=== PATIENT | male | born 1945 | race Caucasian/White ===

== ENCOUNTER 2022-11-01 10:42 | Inpatient (IN) ==
--- NOTE | 2022-11-01 11:13 | Emergency Department Note ---
HPI General Chief complaint: Shortness of Breath/Dyspnea Stated complaint: Sob/swelling of legs Time Seen by Provider: 11/01/22 11:12 Source: patient Mode of arrival: ambulatory Limitations: no limitations History of Present Illness HPI Narrative: Narrative: Patient is a 77-year-old male with a complex past medical history who presents to the emergency department due to shortness of breath. Patient states that he has seen many emergency department physicians and specialists. None of them have been able to take care of his problem. He states that he does not want to leave today without finding a solution. He endorses shortness of breath for months, and states that he thinks it is because of his abdomen. He states that he has swelling of his abdomen that is pressing on his chest and making it difficult to breathe. He states that he has pressure in his abdomen, and that he thinks that this is because of constipation. He is taking opioids and has not had regular bowel movements. He states that it has been a couple of days since his last bowel movement at this time. He endorses productive cough, intermittent nausea, abdominal pressure, changes in frequency of urination, although he states that sometimes frequent and other times he does not, and that he has not had frequent urination recently. He endorses swelling in bilateral lower extremities, and states that he has been diagnosed with heart failure, but that he does not take any furosemide or other diuretics. Related Data Home Medications Medication Instructions Recorded Confirmed vitamin E mixed 400 unit tablet 400 unit PO QDAY 01/06/21 11/02/22 ferrous sulfate, dried 160 mg (50 160 mg PO QDAY 05/23/22 11/02/22 mg iron) tablet,extended release (Slow Release Iron) ginseng 500 mg capsule 500 mg PO QDAY 05/23/22 11/02/22 methocarbamol 500 mg tablet 500 mg PO BID 05/23/22 11/01/22 oxycodone-acetaminophen 7.5 mg-325 1 tab PO 5XD PRN Pain 05/23/22 11/01/22 mg tablet quinine-vitamin E capsule 1 cap PO QDAY 05/23/22 11/02/22 Previous Rx's Medication Instructions Recorded compression socks, medium (Futuro #2 ea 05/09/22 Restoring Medium) esomeprazole magnesium 40 mg 40 mg PO QDAY #90 caps 08/31/22 capsule,delayed release (Nexium) escitalopram oxalate 10 mg tablet 10 mg PO QDAY anxiety and 09/29/22 depression #90 tabs amlodipine 5 mg tablet 5 mg PO QDAY #90 tabs 10/03/22 doxycycline hyclate 100 mg tablet 100 mg PO BID #20 tabs 10/11/22 nortriptyline 10 mg capsule 10 mg PO QHS #90 caps 10/11/22 prednisone 20 mg tablet 40 mg PO QDAY #10 tabs 10/11/22 albuterol sulfate 90 mcg/actuation 2 puff inhalation Q6H PRN 10/31/22 aerosol inhaler shortness of breath or wheezing #8.5 grams amoxicillin 500 mg capsule 500 mg PO Q12H #20 caps 10/31/22 azithromycin 250 mg tablet See Rx Instructions PO .COMPLEX #6 10/31/22 tabs Allergies Allergy/AdvReac Type Severity Reaction Status Date / Time hydrochlorothiazide Allergy Severe Difficulty Verified 11/01/22 18:08 Breathing lisinopril [LISINOPRIL] Allergy Severe Difficulty Verified 11/01/22 18:08 Breathing pravastatin Allergy Severe Difficulty Verified 11/01/22 18:08 Breathing aspirin [From Aggrenox] Allergy Unknown Unknown Verified 11/01/22 18:08 dipyridamole [From Aggrenox] AdvReac Mild Confusion Verified 11/03/22 10:46 Review of Systems ROS ROS Narrative: Narrative: Constitutional: Denies fever or weakness Eyes: Denies eye pain or vision change ENT ED: Denies throat pain, hearing loss or rhinorrhea Cardiovascular: Reports edema; Denies chest pain, dyspnea on exertion or orthopnea Respiratory: Reports shortness of breath and cough Gastrointestinal: Reports abdominal pain, nausea and constipation; Denies vomiting, diarrhea, hematochezia or melena Genitourinary: Reports frequency; Denies dysuria Musculoskeletal: Denies back pain or myalgia Integumentary: Denies rash or lesions Neurological: Denies headache, weakness, numbness, confusion, abnormal gait or dizziness PFSH Narrative Patient History Narrative: Narrative: Medical/Surgical/Family History All Active Problems (Updated 11/03/22 @ 22:31 by Musa Vaz MD) Pneumonia (Acute) CHF exacerbation (Acute) Cigarette smoker (Acute) Essential hypertension (Acute) Community acquired pneumonia (Acute) CHF exacerbation (Acute) 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) COPD with acute exacerbation (Acute) Pigmented skin lesion of suspected malignant nature (Acute) Multilevel degenerative disc disease (Chronic) Hiatal hernia (Chronic) 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) CAD (coronary artery disease) (Chronic) Atherosclerotic heart disease (Chronic) Abdominal pain (Chronic) Volume overload (Chronic) Hypoxia (Chronic) New onset of congestive heart failure (Chronic) History of carotid endarterectomy (Acute ~2014) Precancerous skin lesion (Chronic) Chronic sinusitis (Chronic) History of squamous cell carcinoma of skin (Chronic) Other specified dermatoses (Chronic) Onychomycosis (Chronic) Onycholysis (Chronic) Callus of foot (Chronic) Tobacco use (Chronic) Testicular hypofunction (Chronic) Slowing, urinary stream (Chronic) Rising PSA level (Chronic) Transient visual loss, left eye (Chronic) Partial retinal artery occlusion, left eye (Chronic) Vision disorder (Chronic) Idiopathic progressive neuropathy (Chronic) GERD (gastroesophageal reflux disease) (Chronic) Anxiety and depression (Chronic) Mixed hyperlipidemia (Chronic) Right arm cellulitis (Chronic) Notalgia paresthetica (Chronic) Other lesions of oral mucosa (Chronic) Benign tumor (Chronic) Effusion, right elbow (Chronic) Gout of right elbow (Chronic) Prurigo nodularis (Chronic) Thoracic back pain (Chronic) Lumbar back pain (Chronic) Right shoulder pain (Chronic) Pain in joint of left shoulder (Chronic) Dental caries (Chronic) Stage 3 chronic kidney disease (Chronic) Insulin resistance syndrome (Chronic) Type 2 diabetes mellitus with hyperglycemia (Chronic) Essential hypertension (Chronic) Venous insufficiency of left leg (Chronic) Peripheral vascular disease (Chronic) Bilateral carotid artery occlusion (Chronic) 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) TIA (transient ischemic attack) (Chronic) COPD (chronic obstructive pulmonary disease) (Chronic) BMI 40.0-44.9, adult (Chronic) Morbid obesity (Chronic) Bilateral leg cramps (Chronic) Bloating symptom (Chronic) Low hemoglobin (Chronic) Daytime somnolence (Chronic) Medical History Abdominal pain Aneurysm of infrarenal abdominal aorta Aneurysm of right common iliac artery Anxiety and depression Atherosclerotic heart disease Benign tumor Labial mucosa Bilateral carotid artery occlusion Bilateral leg cramps Bloating symptom BMI 40.0-44.9, adult CAD (coronary artery disease) Callus of foot Chronic sinusitis COPD (chronic obstructive pulmonary disease) Daytime somnolence Dental caries Effusion, right elbow Essential hypertension GERD (gastroesophageal reflux disease) Gout of right elbow Hiatal hernia History of squamous cell carcinoma of skin Hypoxia Idiopathic progressive neuropathy Insulin resistance syndrome Low hemoglobin Lumbar back pain Mixed hyperlipidemia Morbid obesity Multilevel degenerative disc disease New onset of congestive heart failure Notalgia paresthetica Occlusion of right femoropopliteal bypass graft Onycholysis Onychomycosis Other lesions of oral mucosa Other specified dermatoses Pain in joint of left shoulder Partial retinal artery occlusion, left eye Peripheral vascular disease Precancerous skin lesion Prurigo nodularis Right arm cellulitis Right shoulder pain Rising PSA level Slowing, urinary stream Stage 3 chronic kidney disease Testicular hypofunction Thoracic back pain TIA (transient ischemic attack) Tobacco use Transient visual loss, left eye Type 2 diabetes mellitus with hyperglycemia Unspecified cerebral artery occlusion with cerebral infarction Venous insufficiency of left leg Vision disorder Volume overload Surgical History History of carotid endarterectomy (~2013) History of surgery (~06/2017) RLE stents placed; Dr. Queen History of surgery Squamous cell carcinoma removal Family History Mother Cancer Uterine Father , age 70 Kidney disease Grandfather Lung cancer Paternal Daughter Diabetes Type 2 Other Hypertension Metastatic cancer Ovarian cancer Social History Smoking Status: Current every day smoker and Smokeless tobacco Alcohol Intake Frequency: does not drink Substance Use: does not use Exam Narrative Narrative: Narrative: General Limitations: no limitations General appearance: Present alert and in no apparent distress; Absent anxious, appears intoxicated or sleepy Head Head: Present atraumatic and normocephalic Eye Eye: Present EOMI; Absent scleral icterus or nystagmus ENT ENT: Present mucous membranes moist; Absent nasal congestion Neck Neck: Present full ROM and trachea midline Chest Chest: Present normal inspection and symmetric chest wall rise Respiratory Respiratory: Present normal lung sounds bilaterally and rales/crackles; Absent respiratory distress, wheezes, stridor or accessory muscle use Cardiovascular Cardiovascular: Present regular rate, normal rhythm and normal heart sounds Adbominal Abdominal: Present soft, distention and normal bowel sounds; Absent tenderness, guarding, rebound or rigidity Extremities Extremities: Present normal inspection, full ROM, pedal edema and pretibial edema Back Back: Present normal inspection and full ROM; Absent CVA tenderness (R) or CVA tenderness (L) Neurological Neurological: Present alert and oriented X3 Psychiatric Psychiatric: Present normal affect and normal mood Skin Skin: Present warm (WNL), dry and normal color Course Vital Signs Vital signs: Vital Signs Temperature 99.1 F H 11/01/22 10:42 Pulse Rate 105 H 11/01/22 10:42 Respiratory Rate 19 11/01/22 10:42 Blood Pressure 165/88 11/01/22 10:42 Pulse Oximetry (%) 82 L 11/01/22 10:42 Oxygen Delivery Method Room Air 11/01/22 10:42 Temperature 99.3 F H 11/03/22 20:00 Pulse Rate 89 11/03/22 20:00 Respiratory Rate 32 H 11/03/22 20:00 Blood Pressure 134/83 11/03/22 20:00 Pulse Oximetry (%) 98 11/03/22 20:00 Oxygen Delivery Method Oxymask 11/03/22 20:00 Oxygen Flow Rate (L/min) 4 11/03/22 20:00 [facility] MDM Narrative Medical decision making narrative: Narrative: Patient is a 77-year-old male with a complex past medical history who presents to the emergency department due to shortness of breath. Differential diagnoses include constipation and distention, bacterial pneumonia, COVID, influenza, other viral infection, ACS, and CHF exacerbation. Patient's chest x-ray does show a new infiltrate concerning for pneumonia, but also with signs concerning for CHF exacerbation. Patient's BNP is 7230. Patient has received a dose of ceftriaxone and a dose of azithromycin. I have also given him Lasix. I have spoken to Dr. Bruno who has agreed to see and evaluate patient for admission. Lab Data 11/01/22 12:45 Labs: Lab Results 11/01/22 11/01/22 11/01/22 Range/Units 12:15 12:25 12:26 WBC (4.5-11.0) K/mcL RBC (4.63-6.08) M/mcL Hgb (13.7-17.5) g/dL Hct (40.1-51.0) % POC Hct 46.0 (41-55) MCV (80.0-100.0) fL MCH (26.0-34.0) pg MCHC (31.0-36.0) g/dL RDW (11.5-14.5) % Plt Count (140-440) K/mcL MPV (8.8-12.5) fL Immature Gran % (Auto) (0.0-0.5) % Neut % (Auto) (38.0-78.0) % Lymph % (Auto) (15.5-49.0) % Price % (Auto) (1.0-12.0) % Eos % (Auto) (0.0-7.0) % Baso % (Auto) (0.0-2.0) % Lymph # (Auto) (1.50-4.80) K/mcL Price # (Auto) (0.10-0.90) K/mcL Eos # (Auto) (0.00-0.70) K/mcL Baso # (Auto) (0.00-0.30) K/mcL Immature Gran # (0.00-0.05) K/mcl Absolute Neutrophils (1.80-8.00) K/mcL POC Sodium 130 L (133-145) POC Potassium 4.9 (3.3-5.1) POC Chloride 89 L (96-108) POC Total CO2 34.0 H (22-30) POC BUN 16 (6-20) POC Creatinine 1.1 (0.6-1.2) POC Glucose 141 H (70-105) POC WB Ioniz Calcium 1.20 (1.16-1.32) Total Bilirubin (0.1-1.0) mg/dL Direct Bilirubin (0-0.3) mg/dL AST (<40) U/L ALT (<40) U/L Alkaline Phosphatase (39-117) U/L NT-Pro-B Natriuret Pep (<450.0) pg/mL Total Protein (5.9-8.4) gm/dL Albumin (3.2-5.2) gm/dL Globulin (2.2-3.7) gm/dL Lipase (7-60) U/L Urine Color Yellow Urine Appearance Clear (Clear) Urine pH 8.0 (5.0-9.0) Ur Specific [place] 1.012 (1.000-1.035) Urine Protein 100 A (Negative) mg/dL Urine Glucose (UA) Negative (Negative) mg/dL Urine Ketones Negative (Negative) mg/dL Urine Occult Blood Negative (Negative) mg/dL Urine Nitrate Negative (Negative) Urine Bilirubin Negative (Negative) mg/dL Urine Urobilinogen Negative mg/dL Ur Leukocyte Esterase Negative (Negative) /uL Urine RBC 0 (0-3) /hpf Urine WBC < 1 (0-4) /hpf Ur Squamous Epith Cells 0 (0-4) /hpf Urine Bacteria None (0) /hpf Ur Culture Indicated? No POC Troponin I 0.06 (0.00-0.08) 11/01/22 11/01/22 Range/Units 12:44 12:45 WBC 5.4 (4.5-11.0) K/mcL RBC 4.58 L (4.63-6.08) M/mcL Hgb 13.0 L (13.7-17.5) g/dL Hct 43.1 (40.1-51.0) % POC Hct (41-55) MCV 94.1 (80.0-100.0) fL MCH 28.4 (26.0-34.0) pg MCHC 30.2 L (31.0-36.0) g/dL RDW 14.8 H (11.5-14.5) % Plt Count 202 (140-440) K/mcL MPV 9.5 (8.8-12.5) fL Immature Gran % (Auto) 0.7 H (0.0-0.5) % Neut % (Auto) 78.1 H (38.0-78.0) % Lymph % (Auto) 10.5 L (15.5-49.0) % Price % (Auto) 10.5 (1.0-12.0) % Eos % (Auto) 0 (0.0-7.0) % Baso % (Auto) 0.2 (0.0-2.0) % Lymph # (Auto) 0.57 L (1.50-4.80) K/mcL Price # (Auto) 0.57 (0.10-0.90) K/mcL Eos # (Auto) 0 (0.00-0.70) K/mcL Baso # (Auto) 0.01 (0.00-0.30) K/mcL Immature Gran # 0.04 (0.00-0.05) K/mcl Absolute Neutrophils 4.25 (1.80-8.00) K/mcL POC Sodium (133-145) POC Potassium (3.3-5.1) POC Chloride (96-108) POC Total CO2 (22-30) POC BUN (6-20) POC Creatinine (0.6-1.2) POC Glucose (70-105) POC WB Ioniz Calcium (1.16-1.32) Total Bilirubin 0.4 (0.1-1.0) mg/dL Direct Bilirubin < 0.2 (0-0.3) mg/dL AST 28 (<40) U/L ALT 14 (<40) U/L Alkaline Phosphatase 81 (39-117) U/L NT-Pro-B Natriuret Pep 7230.0 H (<450.0) pg/mL Total Protein 7.2 (5.9-8.4) gm/dL Albumin 4.1 (3.2-5.2) gm/dL Globulin 3.1 (2.2-3.7) gm/dL Lipase 14 (7-60) U/L Urine Color Urine Appearance (Clear) Urine pH (5.0-9.0) Ur Specific [place] (1.000-1.035) Urine Protein (Negative) mg/dL Urine Glucose (UA) (Negative) mg/dL Urine Ketones (Negative) mg/dL Urine Occult Blood (Negative) mg/dL Urine Nitrate (Negative) Urine Bilirubin (Negative) mg/dL Urine Urobilinogen mg/dL Ur Leukocyte Esterase (Negative) /uL Urine RBC (0-3) /hpf Urine WBC (0-4) /hpf Ur Squamous Epith Cells (0-4) /hpf Urine Bacteria (0) /hpf Ur Culture Indicated? POC Troponin I (0.00-0.08) EKG Data EKG #1: EKG attestation: Yes I reviewed and interpreted this EKG. EKG results narrative: Sinus tachycardia with a rate of 103, normal axis, NH of 212, QRS of 112, QTc of 447, T wave flattening in leads II, III, and aVF, and absence of ST elevation or depression. Discharge Plan Patient/Caregiver Discharge Instructions Pt seen by REFR[employer]ERATION MECHANIC HELPER/PA only: No Clinical Impression: Pneumonia, CHF exacerbation Patient Disposition: Xfer As Inpt ([facility]) Discharge Date/Time: 11/01/22 17:08
[2022-11-01 12:40] LABS: POC Calcium, Ionized 1.2 (1.16-1.32); POC Creatinine 1.1 (0.6-1.2); POC Potassium 4.9 (3.3-5.1)
--- NOTE | 2022-11-01 12:47 | XRay Report ---
HISTORY: Short of breath, swollen legs FINDINGS: Heart is moderately enlarged but magnified by portable technique. The pulmonary vessels appear engorged. There is an infiltrate at the right lung base. There may be a small subpulmonic pleural effusion on the right. There has been little change from the prior x-ray done on 10/11/22. IMPRESSION: Mild congestive heart failure with possible superimposed pneumonia in the right lower lobe Interpreted and Authenticated by: Aly Patton 11/01/22
--- NOTE | 2022-11-01 12:54 | XRay Report ---
HISTORY: Constipation FINDINGS: The large and small intestine are normal in caliber, without evidence of fecal impaction or obstruction. Few small air-fluid levels are present which may be due to mild ileus. No free intra-abdominal air is present. Patient has mild aneurysmal dilatation of the distal abdominal aorta. This was seen on the prior CT done on 03/15/22 and has not grossly changed. There is a hiatus hernia with an air-fluid level. Degenerative disc disease and arthritis are present at multiple levels in the lumbar spine. There are streaky infiltrates in both lung bases, right greater than left. IMPRESSION: No evidence of fecal impaction or acute abnormality in the abdomen Interpreted and Authenticated by: Aly Patton 11/01/22
[2022-11-01 13:21] LABS: Basophils # (Auto) 0.01 K/mcL (0.00-0.30); Basophils % (Auto) 0.2 % (0.0-2.0); Eosinophils # (Auto) 0 K/mcL (0.00-0.70); Eosinophils % (Auto) 0 % (0.0-7.0); Hematocrit 43.1 % (40.1-51.0); Lymphocytes # (Auto) 0.57 K/mcL (1.50-4.80); Lymphocytes % (Auto) 10.5 % (15.5-49.0); Mean Cell Volume 94.1 fL (80.0-100.0); Mean Corpuscular HGB Conc 30.2 g/dL (31.0-36.0); Mean Platelet Volume 9.5 fL (8.8-12.5); Monocytes # (Auto) 0.57 K/mcL (0.10-0.90); Monocytes % (Auto) 10.5 % (1.0-12.0); Neutrophils % (Auto) 78.1 % (38.0-78.0); Platelet Count 202 K/mcL (140-440); RBC 4.58 M/mcL (4.63-6.08); Red Cell Distribution Width 14.8 % (11.5-14.5); WBC 5.4 K/mcL (4.5-11.0)
[2022-11-01] MEDS ORDERED: HYDROcodone/APAP 5/325MG TABLET PO ONE (13:39)
[2022-11-01 13:55] LABS: Appearance,Urine CLEAR (Clear); Bilirubin,Urine Negative (Negative); Color,Urine YELLOW; Culture Indicated,Urine No; Glucose,Urine (UA) Negative (Negative); Ketones,Urine Negative (Negative); Leukocyte Esterase,Urine Negative /uL (Negative); Nitrate,Urine Negative (Negative); Protein,Urine 100 mg/dL (Negative); Specific Gravity,Urine 1.012 (1.000-1.035); Urine Blood Negative (Negative); Urine RBC 0 /hpf (0-3); Urine Squamous Epithelial Cell 0 /hpf (0-4); Urine WBC < 1 /hpf (0-4); Urobilinogen,Urine Negative
[2022-11-01 13:58] LABS: ALT/SGPT 14 U/L (<40); AST/SGOT 28 U/L (<40); Albumin 4.1 gm/dL (3.2-5.2); Alkaline Phosphatase 81 U/L (39-117); Bilirubin,Direct < 0.2 mg/dL (0-0.3); Bilirubin,Total 0.4 mg/dL (0.1-1.0); Globulin 3.1 gm/dL (2.2-3.7)
[2022-11-01] MEDS ORDERED: NICOTINE 14 MG PATCH TOPICAL ONE (13:59)
[2022-11-01] MEDS ORDERED: FUROSEMIDE 100 MG/10 ML VIAL IV ONE (13:59)
[2022-11-01] MEDS ORDERED: cefTRIAXone 1 GM VIAL IV ONE (14:33)
[2022-11-01] MEDS ORDERED: AZITHROMYCIN 500 MG in DEXTROSE 5% IN WATER 250 ML IV ONE (14:33)
--- NOTE | 2022-11-01 15:06 | Internal Med History&Physical ---
HPI History of Present Illness Patient information: Note initiated : 11/01/22 at 3:00 pm Service Date, if different from initiated Date: [] Patient: Chet Silver 77 y/o M admitted on for Sob/swelling of legs. Chief Complaint: [abdominal pain and distension, shortness of breath] Chief complaint: abdominal pain and distension, shortness of breath History of present illness: Mr. Silver is a 77 year old M history of COPD, CHF, essential hypertensions, anxiety/depressions, CAD, PAD, GERD, smoker, presenting with 9-month history of progressively worsening abdominal pain and distention's. He is complaining of abdominal pain and distention and associated shortness of breath. He is committing of the pill exertion with 50 feet's. He is complaining of unintentional weight gain but he cannot quantify it. He is complain of bilateral leg swellings. He sleeps in a recliner. He does not use oxygen at home. He is coming of cough with brown sputum. He is coming of respiratory symptoms. He denies any fever, chills, or diaphoresis. He denies any chest pain or palpitations. Vital signs at ED presentation significant for oxygen desaturating to 88 on room air as well as tachycardia with heart rate up to the low 100s. Labs significant for lack of leukocytosis with WBC 5.4. BNP 7230. COVID influenza and RSV screening pending. Abdominal x-ray showing no evidence of fecal impaction or acute abnormalities in the abdomen. Chest x-ray showing mild congestive heart failure with possible superimposed pneumonia in the right lower lobe. Admission request is called for CHF exacerbation as well as community-acquired pneumonia. Constitutional Constitutional: Present weight gain; Absent chills, excessive sweating, fatigue or fever(s) EENT Eyes: Absent blurry vision, change in vision, loss of vision or other visual disturbances Ears: Absent decreased hearing or tinnitus Nose, mouth and throat: Absent abnormal hearing, dry mouth, headache(s), nasal congestion or sore throat Cardiovascular Cardiovascular: Present dyspnea on exertion, edema and pedal edema; Absent chest pain, chest pain at rest, irregular heart rhythm or palpatations Respiratory Respiratory: Present cough, dyspnea, dyspnea on exertion, wheezing and excessive phlegm production Gastrointestinal Gastrointestinal: Absent abdominal pain, constipation, diarrhea, nausea or vomiting Musculoskeletal Musculoskeletal: Absent back pain, deformity, limited range of motion, muscle cramps, muscle weakness or numbness Integumentary Integumentary: Absent lesions, rash or wounds Neurological Neurological: Absent focal weakness, headache(s) or numbness Psychiatric Psychiatric: Absent anxiety, depression or hallucinations PFSH PFSH All Active Problems (Updated 11/01/22 @ 15:08 by Vinny Bruno MD) Cigarette smoker (Acute) Essential hypertension (Acute) Community acquired pneumonia (Acute) CHF exacerbation (Acute) 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) COPD with acute exacerbation (Acute) Pigmented skin lesion of suspected malignant nature (Acute) Multilevel degenerative disc disease (Chronic) Hiatal hernia (Chronic) 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) CAD (coronary artery disease) (Chronic) Atherosclerotic heart disease (Chronic) Abdominal pain (Chronic) Volume overload (Chronic) Hypoxia (Chronic) New onset of congestive heart failure (Chronic) History of carotid endarterectomy (Acute ~2014) Precancerous skin lesion (Chronic) Chronic sinusitis (Chronic) History of squamous cell carcinoma of skin (Chronic) Other specified dermatoses (Chronic) Onychomycosis (Chronic) Onycholysis (Chronic) Callus of foot (Chronic) Tobacco use (Chronic) Testicular hypofunction (Chronic) Slowing, urinary stream (Chronic) Rising PSA level (Chronic) Transient visual loss, left eye (Chronic) Partial retinal artery occlusion, left eye (Chronic) Vision disorder (Chronic) Idiopathic progressive neuropathy (Chronic) GERD (gastroesophageal reflux disease) (Chronic) Anxiety and depression (Chronic) Mixed hyperlipidemia (Chronic) Right arm cellulitis (Chronic) Notalgia paresthetica (Chronic) Other lesions of oral mucosa (Chronic) Benign tumor (Chronic) Effusion, right elbow (Chronic) Gout of right elbow (Chronic) Prurigo nodularis (Chronic) Thoracic back pain (Chronic) Lumbar back pain (Chronic) Right shoulder pain (Chronic) Pain in joint of left shoulder (Chronic) Dental caries (Chronic) Stage 3 chronic kidney disease (Chronic) Insulin resistance syndrome (Chronic) Type 2 diabetes mellitus with hyperglycemia (Chronic) Essential hypertension (Chronic) Venous insufficiency of left leg (Chronic) Peripheral vascular disease (Chronic) Bilateral carotid artery occlusion (Chronic) 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) TIA (transient ischemic attack) (Chronic) COPD (chronic obstructive pulmonary disease) (Chronic) BMI 40.0-44.9, adult (Chronic) Morbid obesity (Chronic) Bilateral leg cramps (Chronic) Bloating symptom (Chronic) Low hemoglobin (Chronic) Daytime somnolence (Chronic) Medical History Abdominal pain Aneurysm of infrarenal abdominal aorta Aneurysm of right common iliac artery Anxiety and depression Atherosclerotic heart disease Benign tumor Labial mucosa Bilateral carotid artery occlusion Bilateral leg cramps Bloating symptom BMI 40.0-44.9, adult CAD (coronary artery disease) Callus of foot Chronic sinusitis COPD (chronic obstructive pulmonary disease) Daytime somnolence Dental caries Effusion, right elbow Essential hypertension GERD (gastroesophageal reflux disease) Gout of right elbow Hiatal hernia History of squamous cell carcinoma of skin Hypoxia Idiopathic progressive neuropathy Insulin resistance syndrome Low hemoglobin Lumbar back pain Mixed hyperlipidemia Morbid obesity Multilevel degenerative disc disease New onset of congestive heart failure Notalgia paresthetica Occlusion of right femoropopliteal bypass graft Onycholysis Onychomycosis Other lesions of oral mucosa Other specified dermatoses Pain in joint of left shoulder Partial retinal artery occlusion, left eye Peripheral vascular disease Precancerous skin lesion Prurigo nodularis Right arm cellulitis Right shoulder pain Rising PSA level Slowing, urinary stream Stage 3 chronic kidney disease Testicular hypofunction Thoracic back pain TIA (transient ischemic attack) Tobacco use Transient visual loss, left eye Type 2 diabetes mellitus with hyperglycemia Unspecified cerebral artery occlusion with cerebral infarction Venous insufficiency of left leg Vision disorder Volume overload Surgical History History of carotid endarterectomy (~2013) History of surgery (~06/2017) RLE stents placed; Dr. Queen History of surgery Squamous cell carcinoma removal Family History Mother Cancer Uterine Father , age 70 Kidney disease Grandfather Lung cancer Paternal Daughter Diabetes Type 2 Other Hypertension Metastatic cancer Ovarian cancer Social History marital status: occupational status: retired physical activity: none smoking status: Current every day smoker and Smokeless tobacco alcohol intake frequency: does not drink substance use type: does not use MEDS/ALLERGIES Home Medications and Allergies Home Medications Medication Instructions Recorded Confirmed Type vitamin E mixed 400 unit tablet unit PO QDAY 01/06/21 10/31/22 History compression socks, medium (Futuro #2 ea 05/09/22 10/31/22 Rx Restoring Medium) ferrous sulfate, dried 160 mg (50 160 mg PO QDAY 05/23/22 10/31/22 History mg iron) tablet,extended release (Slow Release Iron) ginseng 500 mg capsule 500 mg PO QDAY 05/23/22 10/31/22 History methocarbamol 500 mg tablet 500 mg PO BID 05/23/22 10/31/22 History oxycodone-acetaminophen 7.5 mg-325 1 tab PO 5XD PRN 05/23/22 10/31/22 History mg tablet quinine-vitamin E capsule 1 cap PO QDAY 05/23/22 10/31/22 History esomeprazole magnesium 40 mg 40 mg PO QDAY #90 caps 08/31/22 10/31/22 Rx capsule,delayed release (Nexium) escitalopram oxalate 10 mg tablet 10 mg PO QDAY anxiety and 09/29/22 10/31/22 Rx depression #90 tabs amlodipine 5 mg tablet 5 mg PO QDAY #90 tabs 10/03/22 10/31/22 Rx doxycycline hyclate 100 mg tablet 100 mg PO BID #20 tabs 10/11/22 10/31/22 Rx nortriptyline 10 mg capsule 10 mg PO QHS #90 caps 10/11/22 10/31/22 Rx prednisone 20 mg tablet 40 mg PO QDAY #10 tabs 10/11/22 10/31/22 Rx albuterol sulfate 90 mcg/actuation 2 puff inhalation Q6H PRN 10/31/22 Rx aerosol inhaler shortness of breath or wheezing #8.5 grams amoxicillin 500 mg capsule 500 mg PO Q12H #20 caps 10/31/22 10/31/22 Rx azithromycin 250 mg tablet See Rx Instructions PO .COMPLEX #6 10/31/22 10/31/22 Rx tabs prednisone 20 mg tablet 40 mg PO QDAY #10 tabs 10/31/22 10/31/22 Rx Allergies Allergy/AdvReac Type Severity Reaction Status Date / Time aspirin [From Aggrenox] Allergy Severe Unknown Verified 10/31/22 11:31 dipyridamole [From Aggrenox] Allergy Severe Unknown Verified 10/31/22 11:31 pravastatin Allergy Severe Unknown Verified 10/31/22 11:31 hydrochlorothiazide Allergy Mild Unknown Verified 10/31/22 11:31 lisinopril [LISINOPRIL] Allergy Unknown RECTAL Verified 10/31/22 11:31 BLEEDING EXAM Constitutional Vitals: Temp Pulse Resp BP Pulse Ox O2 Del Method O2 Flow Rate 37.3 C H 95 H 19 161/80 91 Nasal Cannula 3 11/01/22 10:42 11/01/22 14:22 11/01/22 10:42 11/01/22 13:31 11/01/22 14:22 11/01/22 13:31 11/01/22 13:31 General appearance: cooperative and no acute distress Head Head exam: Present atraumatic and normocephalic Eye Eye exam: Present EOMI and PERRL ENT ENT exam: Present mucous membranes moist, normal exam and normal external ear exam Additional comments: Nasal cannula in place Neck Neck exam: Present normal inspection; Absent lymphadenopathy, tenderness or thyromegaly Respiratory Respiratory exam: Present decreased breath sounds; Absent accessory muscle use, respiratory distress or wheezes Cardiovascular Cardiovascular exam: Present normal rate and rhythm; Absent JVD GI/Abdominal GI/Abdominal exam: Present normal bowel sounds and soft; Absent organomegaly or tenderness Rectal Rectal exam: Present deferred Extremities Exam Extremities exam: Present full ROM, normal capillary refill, normal inspection and pedal edema; Absent tenderness Neurological Exam Neurological exam: Present alert, CN II-XII intact and oriented X3; Absent motor sensory deficit Psychiatric Psychiatric exam: Present normal affect and normal mood; Absent anxious or depressed Skin Skin exam: Present dry and intact DATA Data Completed and Pending Labs: Labs from last 24 hours 11/01/22 11/01/22 11/01/22 12:45 12:44 12:26 WBC 5.4 RBC 4.58 L Hgb 13.0 L Hct 43.1 POC Hct MCV 94.1 MCH 28.4 MCHC 30.2 L RDW 14.8 H Plt Count 202 MPV 9.5 Immature Gran % (Auto) 0.7 H Neut % (Auto) 78.1 H Lymph % (Auto) 10.5 L [place] % (Auto) 10.5 Eos % (Auto) 0 Baso % (Auto) 0.2 Lymph # (Auto) 0.57 L [place] # (Auto) 0.57 Eos # (Auto) 0 Baso # (Auto) 0.01 Immature Gran # 0.04 Absolute Neutrophils 4.25 POC Sodium POC Potassium POC Chloride POC Total CO2 POC BUN POC Creatinine POC Glucose POC WB Ioniz Calcium Total Bilirubin 0.4 Direct Bilirubin < 0.2 AST 28 ALT 14 Alkaline Phosphatase 81 NT-Pro-B Natriuret Pep 7230.0 H Total Protein 7.2 Albumin 4.1 Globulin 3.1 Lipase 14 Urine Color Urine Appearance Urine pH Ur Specific [place] Urine Protein Urine Glucose (UA) Urine Ketones Urine Occult Blood Urine Nitrate Urine Bilirubin Urine Urobilinogen Ur Leukocyte Esterase Urine RBC Urine WBC Ur Squamous Epith Cells Urine Bacteria Ur Culture Indicated? POC Troponin I 0.06 11/01/22 11/01/22 12:25 12:15 WBC RBC Hgb Hct POC Hct 46.0 MCV MCH MCHC RDW Plt Count MPV Immature Gran % (Auto) Neut % (Auto) Lymph % (Auto) [place] % (Auto) Eos % (Auto) Baso % (Auto) Lymph # (Auto) [place] # (Auto) Eos # (Auto) Baso # (Auto) Immature Gran # Absolute Neutrophils POC Sodium 130 L POC Potassium 4.9 POC Chloride 89 L POC Total CO2 34.0 H POC BUN 16 POC Creatinine 1.1 POC Glucose 141 H POC WB Ioniz Calcium 1.20 Total Bilirubin Direct Bilirubin AST ALT Alkaline Phosphatase NT-Pro-B Natriuret Pep Total Protein Albumin Globulin Lipase Urine Color Yellow Urine Appearance Clear Urine pH 8.0 Ur Specific [place] 1.012 Urine Protein 100 A Urine Glucose (UA) Negative Urine Ketones Negative Urine Occult Blood Negative Urine Nitrate Negative Urine Bilirubin Negative Urine Urobilinogen Negative Ur Leukocyte Esterase Negative Urine RBC 0 Urine WBC < 1 Ur Squamous Epith Cells 0 Urine Bacteria None Ur Culture Indicated? No POC Troponin I A/P Assessment and plan (1) CAD (coronary artery disease): Status: Chronic (2) CHF exacerbation: Status: Acute (3) Community acquired pneumonia: Status: Acute (4) GERD (gastroesophageal reflux disease): Status: Chronic (5) Anxiety and depression: Status: Chronic (6) COPD (chronic obstructive pulmonary disease): Status: Chronic (7) Morbid obesity: Status: Chronic (8) Essential hypertension: Status: Acute (9) Cigarette smoker: Status: Acute Narrative A/P Narrative: Assessment and Plans: 1. CHF exacerbation: Inpatient med surg telemetry Supplemental oxygen therapy titrate to achieve spo2>=88-92% Strict intake and output measurement Daily weigh 2000cc/day fluid restriction Lasix 40mg IV BID No beta thu at time of exacerbation Losartan Physical therapy evaluation and treatment 2. Community acquired pneumonia: Serial lactic acid Procalcitonin level Blood culture cbc w/ auto diff in the morning to trend WBC Rocephin Zithromax Supplemental oxygen therapy titrate to achieve spo2>=88-92% 3. h/o COPD, stable: Continue bronchodilators Supplemental oxygen therapy titrate to achieve spo2>=88-92% 4. Essential hypertension: Amlodipine Losartan Lasix 40mg IV BID 5. Anxiety/depression: Escitalopram Nortriptyline 6. h/o CAD: Continue to monitor 7. h/o PAD: Continue to monitor 8. GERD: PPI 9. Cigarette smoker: Nicotine replacement therapy 10. 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
[2022-11-01] MEDS ORDERED: traZODone HCL 50 MG TABLET PO PRN (17:40)
[2022-11-01] MEDS ORDERED: ONDANSETRON 4 MG/2 ML VIAL IV PRN (17:40)
[2022-11-01] MEDS ORDERED: oxyCODONE HCL 5 MG TABLET PO PRN (17:40)
[2022-11-01] MEDS ORDERED: ACETAMINOPHEN 325 MG TABLET PO PRN (17:40)
[2022-11-01] MEDS ORDERED: guaiFENesin/DEXTROMETHORPHAN 5ML UD CUP PO PRN (17:40)
[2022-11-01] MEDS ORDERED: cefTRIAXone 1 GM in DEXTROSE 5% IN WATER 50 ML IV SCH (17:40)
[2022-11-01] MEDS ORDERED: NON FORMULARY MEDICATION 1 DOSE MISCELL (Oxycodone-Acetaminophen 7.5-325 mg tablet) PO PRN (17:56)
[2022-11-01] MEDS ORDERED: ALBUTEROL SULFATE 60 PUFF INHALER INH PRN (17:56)
[2022-11-01] MEDS: IPRATROPIUM/ALBUTEROL 3 ML AMPUL.NEB NEB PRN (18:33)
[2022-11-01] MEDS: NICOTINE 21 MG PATCH TOPICAL SCH (19:00)
[2022-11-01] MEDS: NICOTINE 14 MG PATCH TOPICAL SCH (19:00)
[2022-11-01] MEDS: FUROSEMIDE 40 MG/4 ML VIAL IV SCH (19:04)
[2022-11-01] MEDS: SENNOSIDES 1 TABLET PO SCH (20:32)
[2022-11-01] MEDS: NORTRIPTYLINE 10 MG CAPSULE PO SCH (20:33)
[2022-11-01] MEDS: METHOCARBAMOL 500 MG TABLET PO SCH (20:33)
[2022-11-01] MEDS: DOCUSATE SODIUM 100 MG CAPSULE PO SCH (20:33)
[2022-11-01] MEDS: ZOLPIDEM 5 MG TABLET PO PRN (20:44)
[2022-11-01] MEDS: 0.9 % SODIUM CHLORIDE 10 ML SYRINGE IV SCH (20:48)
[2022-11-01] MEDS: oxyCODONE/APAP 5/325MG TABLET PO PRN (22:50)
[2022-11-02] MEDS: 0.9 % SODIUM CHLORIDE 10 ML SYRINGE IV SCH ×3 (05:26→20:54)
[2022-11-02 07:32] LABS: Estimated Average Glucose(eAG) 134 mg/dL; Hemoglobin A1C 6.3 % Hgb (4.0-6.0)
[2022-11-02 07:38] LABS: ALT/SGPT 6 U/L (<40); AST/SGOT 21 U/L (<40); Albumin/Globulin Ratio 1.5 (1.0-2.3); Alkaline Phosphatase 70 U/L (39-117); Basophils # (Auto) 0.03 K/mcL (0.00-0.30); Basophils % (Auto) 0.6 % (0.0-2.0); Bilirubin,Total 0.3 mg/dL (0.1-1.0); Blood Urea Nitrogen 12 mg/dL (8-23); Calcium 9.8 mg/dL (8.6-10.4); Carbon Dioxide 36 mmol/L (22-30); Chloride 92 mmol/L (96-108); Eosinophils # (Auto) 0.06 K/mcL (0.00-0.70); Eosinophils % (Auto) 1.1 % (0.0-7.0); Globulin 2.6 gm/dL (2.2-3.7); Glomerular Filtration Rate 65; Glucose 99 mg/dL (70-105); Hematocrit 40.4 % (40.1-51.0); Lymphocytes # (Auto) 0.76 K/mcL (1.50-4.80); Lymphocytes % (Auto) 14.4 % (15.5-49.0); Mean Cell Volume 95.1 fL (80.0-100.0); Mean Corpuscular HGB Conc 29.7 g/dL (31.0-36.0); Mean Platelet Volume 9.3 fL (8.8-12.5); Monocytes # (Auto) 0.68 K/mcL (0.10-0.90); Monocytes % (Auto) 12.9 % (1.0-12.0); Neutrophils % (Auto) 70.6 % (38.0-78.0); Platelet Count 182 K/mcL (140-440); RBC 4.25 M/mcL (4.63-6.08); WBC 5.3 K/mcL (4.5-11.0)
[2022-11-02] MEDS: cefTRIAXone 1 GM VIAL IV SCH (08:11)
[2022-11-02] MEDS: PANTOPRAZOLE 40 MG TABLET PO SCH (08:11)
[2022-11-02] MEDS: ESCITALOPRAM 10 MG TABLET PO SCH (08:11)
[2022-11-02] MEDS: DOCUSATE SODIUM 100 MG CAPSULE PO SCH ×2 (08:11→20:53)
[2022-11-02] MEDS: FUROSEMIDE 40 MG/4 ML VIAL IV SCH ×2 (08:11→15:24)
[2022-11-02] MEDS: LOSARTAN 25 MG TABLET PO SCH (08:11)
[2022-11-02] MEDS: ENOXAPARIN 40 MG/0.4 ML SYRINGE SQ SCH (08:11)
[2022-11-02] MEDS: METHOCARBAMOL 500 MG TABLET PO SCH ×2 (08:11→20:53)
[2022-11-02] MEDS: amLODIPine 5 MG TABLET PO SCH (08:12)
[2022-11-02] MEDS: oxyCODONE/APAP 5/325MG TABLET PO PRN ×3 (08:20→23:10)
[2022-11-02] MEDS ORDERED: predniSONE 20 MG TABLET PO SCH (09:00)
[2022-11-02] MEDS: NICOTINE 21 MG PATCH TOPICAL SCH (09:58)
[2022-11-02] MEDS: NICOTINE 14 MG PATCH TOPICAL SCH (09:58)
[2022-11-02] MEDS: AZITHROMYCIN 500 MG in DEXTROSE 5% IN WATER 250 ML IV SCH (09:58)
--- NOTE | 2022-11-02 12:40 | Internal Med Progress Note ---
SUBJECTIVE Subjective Patient information: Note initiated : 11/02/22 at 12:35 pm Service Date, if different from initiated Date: [] Patient: Chet Silver 77 y/o M admitted on 11/01/22 for Sob/swelling of legs; CHF. Chief Complaint: [] Interval history: Mr. Silver is a 77 year old M history of COPD, CHF, essential hypertensions, anxiety/depressions, CAD, PAD, GERD, smoker, presenting with 9-month history of progressively worsening abdominal pain and distention's. He is complaining of abdominal pain and distention and associated shortness of breath. He is committing of the pill exertion with 50 feet's. He is complaining of unintentional weight gain but he cannot quantify it. He is complain of bilateral leg swellings. He sleeps in a recliner. He does not use oxygen at home. He is coming of cough with brown sputum. He is coming of respiratory symptoms. He denies any fever, chills, or diaphoresis. He denies any chest pain or palpitations. Vital signs at ED presentation significant for oxygen desaturating to 88 on room air as well as tachycardia with heart rate up to the low 100s. Labs significant for lack of leukocytosis with WBC 5.4. BNP 7230. COVID influenza and RSV screening pending. Abdominal x-ray showing no evidence of fecal impaction or acute abnormalities in the abdomen. Chest x-ray showing mild congestive heart failure with possible superimposed pneumonia in the right lower lobe. Admission request is called for CHF exacerbation as well as community-acquired pneumonia. 11/02: Patient is currently on 5 L/min OxyMask. Afebrile overnight. WBC 5.3 this morning. Cultures no growth today. Echocardiogram performed and reports pending. Patient is still coming of the same degree of shortness of breath and chest pressure. He is coming of cough with brown sputum productions as well as respiratory wheezings. He denies fever chills or diaphoresis. Continue supplemental oxygen therapy and will wean down/off as tolerated by the patient's. Continue IV Lasix and ARB while waiting for echocardiogram report to make final medications adjustment. Continue Rocephin and azithromycin for pneumonia. Continue physical therapy evaluation and treatment for placement planning. Constitutional Vitals: Vital Signs Temp Pulse Resp BP Pulse Ox O2 Del Method O2 Flow Rate 36.6 C 98 H 24 H 149/94 97 Nasal Cannula 4.5 11/02/22 12:00 11/02/22 12:00 11/02/22 12:00 11/02/22 07:52 11/02/22 12:00 11/02/22 12:00 11/02/22 12:00 Period Temp Pulse Resp BP Sys/Duncan Pulse Ox O2 Del Method O2 Flow Rate Last 24 Hr 36.4 C-36.8 C 16-102 16-24 119-181/64-116 90-97 Nasal Cannula- Oxymask 2.5-6 Intake and Output 11/02/22 11/02/22 11/02/22 03:59 11:59 19:59 Intake Total 300 480 Output Total 300 225 500 Balance 0 -225 -20 Intake & Output: Intake & Output 11/02/22 11/02/22 11/02/22 03:59 11:59 19:59 Intake Total 300 480 Output Total 300 225 500 Balance 0 -225 -20 Intake: Oral 300 480 Output: Void Amount 300 225 500 Other: Meal Breakfast Percent of Meal Consumed 100% Urine Appearance Clear Clear Urine Color Yellow Pale Urine Odor Normal # Voids 3 General appearance: cooperative, morbidly obese and no acute distress Head Head exam: Present atraumatic and normal inspection Eye Eye exam: Present normal appearance ENT ENT exam: Present mucous membranes moist, normal exam and normal external ear exam Additional comments: OxyMask in place Neck Neck exam: Present normal inspection Respiratory Respiratory exam: Present rhonchi and wheezes Cardiovascular Cardiovascular exam: Present normal rate and rhythm GI/Abdominal GI/Abdominal exam: Present normal bowel sounds Extremities Exam Extremities exam: Present pedal edema Back Exam Back exam: Present normal inspection Neurological Exam Neurological exam: Present alert and oriented X3 Skin Skin exam: Present intact and warm OBJ DATA Labs 11/02/22 05:32 11/02/22 05:32 Labs: Abnormal Lab Results 11/02/22 11/02/22 11/01/22 05:32 05:32 12:45 RBC 4.25 L 4.58 L Hgb 12.0 L 13.0 L MCHC 29.7 L 30.2 L RDW 15.0 H 14.8 H Immature Gran % (Auto) 0.7 H Neut % (Auto) 78.1 H Lymph % (Auto) 14.4 L 10.5 L [place] % (Auto) 12.9 H Lymph # (Auto) 0.76 L 0.57 L POC Sodium Sodium 131 L POC Chloride Chloride 92 L Carbon Dioxide 36 H POC Total CO2 Anion Gap 3.0 L POC Glucose Hemoglobin A1c 6.3 H NT-Pro-B Natriuret Pep Urine Protein 11/01/22 11/01/22 11/01/22 12:44 12:25 12:15 RBC Hgb MCHC RDW Immature Gran % (Auto) Neut % (Auto) Lymph % (Auto) [place] % (Auto) Lymph # (Auto) POC Sodium 130 L Sodium POC Chloride 89 L Chloride Carbon Dioxide POC Total CO2 34.0 H Anion Gap POC Glucose 141 H Hemoglobin A1c NT-Pro-B Natriuret Pep 7230.0 H Urine Protein 100 A Meds: Medications Acetaminophen (Acetaminophen 325 Mg Tablet) 650 mg PO Q6HP PRN; Protocol PRN Reason: Per Pain Protocol/Fever > 101 Albuterol Sulfate (Albuterol Sulfate 60 Puff Inhaler) 2 puff INH Q6HP PRN PRN Reason: shortness of breath or wheezin Albuterol/Ipratropium (Ipratropium/Albuterol 3 Ml Ampul.Neb) 3 ml NEB Q4HRT PRN PRN Reason: Wheezing Last Admin: 11/01/22 18:33 Dose: 3 ml Amlodipine Besylate (Amlodipine 5 Mg Tablet) 5 mg PO QDAY [facility] Last Admin: 11/02/22 08:12 Dose: 5 mg Ceftriaxone Sodium (Ceftriaxone 1 Gm Vial) 1 gm IV Q24H [facility] Last Admin: 11/02/22 08:11 Dose: 1 gm Docusate Sodium (Docusate Sodium 100 Mg Capsule) 100 mg PO BID [facility] Last Admin: 11/02/22 08:11 Dose: 100 mg Enoxaparin Sodium (Enoxaparin 40 Mg/0.4 Ml Syringe) 40 mg SQ DAILY [facility] Last Admin: 11/02/22 08:11 Dose: 40 mg Escitalopram Oxalate (Escitalopram 10 Mg Tablet) 10 mg PO QDAY [facility] Last Admin: 11/02/22 08:11 Dose: 10 mg Furosemide (Furosemide 40 Mg/4 Ml Vial) 40 mg IV BIDD [facility] Last Admin: 11/02/22 08:11 Dose: 40 mg Guaifenesin (Guaifenesin/Dextromethorphan 5ml Ud Cup) 10 ml PO Q4HP PRN PRN Reason: Cough Azithromycin 500 mg/ Dextrose 250 mls @ 250 mls/hr IV Q24H [facility]; Protocol Stop: 11/03/22 10:59 Last Admin: 11/02/22 09:58 Dose: 250 mls/hr Losartan Potassium (Losartan 25 Mg Tablet) 25 mg PO DAILY [facility] Last Admin: 11/02/22 08:11 Dose: 25 mg Methocarbamol (Methocarbamol 500 Mg Tablet) 500 mg PO BID [facility] Last Admin: 11/02/22 08:11 Dose: 500 mg Morphine Sulfate (Morphine 4 Mg/Ml Vial) 4 mg IV Q4HP PRN; Protocol PRN Reason: Per Pain Protocol Nicotine (Nicotine 21 Mg Patch) 21 mg TOPICAL DAILY@1000 [facility] Last Admin: 11/02/22 09:58 Dose: 21 mg Nicotine (Nicotine 14 Mg Patch) 14 mg TOPICAL DAILY@1000 [facility] Last Admin: 11/02/22 09:58 Dose: 14 mg Nortriptyline HCl (Nortriptyline 10 Mg Capsule) 10 mg PO QHS [facility] Last Admin: 11/01/22 20:33 Dose: 10 mg Ondansetron HCl (Ondansetron 4 Mg/2 Ml Vial) 4 mg IV Q6HP PRN PRN Reason: Nausea And Vomiting Oxycodone/Acetaminophen (Oxycodone/Apap 5/325mg Tablet) 1 tab PO Q6HP PRN; Protocol PRN Reason: Per Pain Protocol Last Admin: 11/02/22 08:20 Dose: 1 tab Pantoprazole Sodium (Pantoprazole 40 Mg Tablet) 40 mg PO QAMAC [facility] Last Admin: 11/02/22 08:11 Dose: 40 mg Senna (Sennosides 1 Tablet) 2 tab PO HS [facility] Last Admin: 11/01/22 20:32 Dose: 2 tab Sodium Chloride (0.9 % Sodium Chloride 10 Ml Syringe) 10 ml IV Q8 [facility] Last Admin: 11/02/22 05:26 Dose: 10 ml Zolpidem Tartrate (Zolpidem 5 Mg Tablet) 5 mg PO HSP PRN PRN Reason: Insomnia Last Admin: 11/01/22 20:44 Dose: 5 mg A/P Assessment and plan (1) CAD (coronary artery disease): Status: Chronic (2) CHF exacerbation: Status: Acute (3) Community acquired pneumonia: Status: Acute (4) GERD (gastroesophageal reflux disease): Status: Chronic (5) Anxiety and depression: Status: Chronic (6) COPD (chronic obstructive pulmonary disease): Status: Chronic (7) Morbid obesity: Status: Chronic (8) Essential hypertension: Status: Acute (9) Cigarette smoker: Status: Acute Narrative A/P Narrative: Assessment and Plans: 1. CHF exacerbation: Inpatient med surg telemetry Supplemental oxygen therapy titrate to achieve spo2>=88-92% Strict intake and output measurement Daily weigh 2000cc/day fluid restriction Lasix 40mg IV BID No beta thu at time of exacerbation Losartan Physical therapy evaluation and treatment 2. Community acquired pneumonia: Serial lactic acid 1.4 Procalcitonin level Blood culture, no growth to date cbc w/ auto diff in the morning to trend WBC Rocephin Zithromax Supplemental oxygen therapy titrate to achieve spo2>=88-92% 3. h/o COPD, stable: Continue bronchodilators Supplemental oxygen therapy titrate to achieve spo2>=88-92% 4. Essential hypertension: Amlodipine Losartan Lasix 40mg IV BID 5. Anxiety/depression: Escitalopram Nortriptyline 6. h/o CAD: Continue to monitor 7. h/o PAD: Continue to monitor 8. GERD: PPI 9. Cigarette smoker: Nicotine replacement therapy 10. 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
[2022-11-02] MEDS: IPRATROPIUM/ALBUTEROL 3 ML AMPUL.NEB NEB PRN (14:00)
[2022-11-02] MEDS: NORTRIPTYLINE 10 MG CAPSULE PO SCH (20:53)
[2022-11-02] MEDS: SENNOSIDES 1 TABLET PO SCH (20:53)
[2022-11-02] MEDS: ZOLPIDEM 5 MG TABLET PO PRN (20:53)
[2022-11-03] MEDS: LORazepam 1 MG TABLET PO PRN (00:58)
[2022-11-03] MEDS ORDERED: LORazepam 1 MG TABLET ONE (00:59)
[2022-11-03] MEDS: 0.9 % SODIUM CHLORIDE 10 ML SYRINGE IV SCH ×3 (05:15→20:48)
[2022-11-03 06:59] LABS: Basophils # (Auto) 0.02 K/mcL (0.00-0.30); Basophils % (Auto) 0.3 % (0.0-2.0); Eosinophils # (Auto) 0.09 K/mcL (0.00-0.70); Eosinophils % (Auto) 1.4 % (0.0-7.0); Hematocrit 41.3 % (40.1-51.0); Hemoglobin 11.9 g/dL (13.7-17.5); Lymphocytes # (Auto) 0.59 K/mcL (1.50-4.80); Lymphocytes % (Auto) 9.1 % (15.5-49.0); Mean Cell Volume 96.3 fL (80.0-100.0); Mean Corpuscular HGB Conc 28.8 g/dL (31.0-36.0); Mean Platelet Volume 8.9 fL (8.8-12.5); Monocytes # (Auto) 0.83 K/mcL (0.10-0.90); Monocytes % (Auto) 12.8 % (1.0-12.0); Neutrophils % (Auto) 76.1 % (38.0-78.0); Platelet Count 178 K/mcL (140-440); RBC 4.29 M/mcL (4.63-6.08); Red Cell Distribution Width 14.9 % (11.5-14.5); WBC 6.5 K/mcL (4.5-11.0)
[2022-11-03 07:28] LABS: ALT/SGPT 12 U/L (<40); AST/SGOT 21 U/L (<40); Albumin 3.6 gm/dL (3.2-5.2); Albumin/Globulin Ratio 1.4 (1.0-2.3); Alkaline Phosphatase 65 U/L (39-117); Bilirubin,Total 0.4 mg/dL (0.1-1.0); Blood Urea Nitrogen 15 mg/dL (8-23); Calcium 9.7 mg/dL (8.6-10.4); Carbon Dioxide 36 mmol/L (22-30); Chloride 88 mmol/L (96-108); Globulin 2.6 gm/dL (2.2-3.7); Glomerular Filtration Rate 65; Glucose 93 mg/dL (70-105)
[2022-11-03] MEDS: FUROSEMIDE 40 MG/4 ML VIAL IV SCH ×2 (08:06→16:09)
[2022-11-03] MEDS: LOSARTAN 25 MG TABLET PO SCH (08:06)
[2022-11-03] MEDS: ESCITALOPRAM 10 MG TABLET PO SCH (08:06)
[2022-11-03] MEDS: ENOXAPARIN 40 MG/0.4 ML SYRINGE SQ SCH (08:06)
[2022-11-03] MEDS: DOCUSATE SODIUM 100 MG CAPSULE PO SCH ×2 (08:07→20:47)
[2022-11-03] MEDS: oxyCODONE/APAP 5/325MG TABLET PO PRN ×2 (08:07→22:23)
[2022-11-03] MEDS: METHOCARBAMOL 500 MG TABLET PO SCH ×2 (08:07→20:48)
[2022-11-03] MEDS: PANTOPRAZOLE 40 MG TABLET PO SCH (08:07)
[2022-11-03] MEDS: amLODIPine 5 MG TABLET PO SCH (08:07)
[2022-11-03] MEDS ORDERED: [UNRECOGNIZED DRUG - OTHER] PO SCH (09:00)
[2022-11-03] MEDS ORDERED: VITAMIN E MIXED 400 UNIT PO SCH (09:00)
[2022-11-03] MEDS ORDERED: [UNRECOGNIZED DRUG - OTHER] PO SCH (09:00)
[2022-11-03] MEDS ORDERED: GINSENG 500 MG PO SCH (09:00)
[2022-11-03] MEDS ORDERED: FERROUS SULFATE DRIED 160 MG PO SCH (09:00)
[2022-11-03] MEDS: NICOTINE 21 MG PATCH TOPICAL SCH (09:08)
[2022-11-03] MEDS: cefTRIAXone 1 GM VIAL IV SCH (09:08)
[2022-11-03] MEDS: NICOTINE 14 MG PATCH TOPICAL SCH (09:08)
[2022-11-03] MEDS: AZITHROMYCIN 500 MG in DEXTROSE 5% IN WATER 250 ML IV SCH (09:09)
--- NOTE | 2022-11-03 10:54 | Internal Med Progress Note ---
SUBJECTIVE Subjective Patient information: Note initiated : 11/03/22 at 10:53 am Service Date, if different from initiated Date: [] Patient: Chet Silver 77 y/o M admitted on 11/01/22 for Sob/swelling of legs; CHF. Chief Complaint: [] Interval history: Mr. Silver is a 77 year old M history of COPD, CHF, essential hypertensions, anxiety/depressions, CAD, PAD, GERD, smoker, presenting with 9-month history of progressively worsening abdominal pain and distention's. He is complaining of abdominal pain and distention and associated shortness of breath. He is committing of the pill exertion with 50 feet's. He is complaining of unintentional weight gain but he cannot quantify it. He is complain of bilateral leg swellings. He sleeps in a recliner. He does not use oxygen at home. He is coming of cough with brown sputum. He is coming of respiratory symptoms. He denies any fever, chills, or diaphoresis. He denies any chest pain or palpitations. Vital signs at ED presentation significant for oxygen desaturating to 88 on room air as well as tachycardia with heart rate up to the low 100s. Labs significant for lack of leukocytosis with WBC 5.4. BNP 7230. COVID influenza and RSV screening pending. Abdominal x-ray showing no evidence of fecal impaction or acute abnormalities in the abdomen. Chest x-ray showing mild congestive heart failure with possible superimposed pneumonia in the right lower lobe. Admission request is called for CHF exacerbation as well as community-acquired pneumonia. 11/02: Patient is currently on 5 L/min OxyMask. Afebrile overnight. WBC 5.3 this morning. Cultures no growth today. Echocardiogram performed and reports pending. Patient is still coming of the same degree of shortness of breath and chest pressure. He is coming of cough with brown sputum productions as well as respiratory wheezings. He denies fever chills or diaphoresis. Continue supplemental oxygen therapy and will wean down/off as tolerated by the patient's. Continue IV Lasix and ARB while waiting for echocardiogram report to make final medications adjustment. Continue Rocephin and azithromycin for pneumonia. Continue physical therapy evaluation and treatment for placement planning. 11/03: 2D echocardiogram showing reduced left systolic ejection functions with estimated LVEF 25 to 30%. No diastolic dysfunction identified. The right ventricle is severely dilated, right ventricular systolic function is normal. Patient is currently on 4 L/min nasal cannula oxygen. Patient has been afebrile overnight. Cultures no growth today. Continue to wean supplemental oxygen therapy as tolerated by the patient's. Okay to DC cardiac monitoring. Continue Rocephin and azithromycin while monitoring for blood culture result for pneumonia. Add Aldactone while continuing IV Lasix and losartan and for CHF exacerbations. Add beta-thu at time of hospital discharge. Physical therapist evaluated the patient and recommend home health services at time of discharge. We will keep the patient on MedSurg today. Constitutional Vitals: Vital Signs Temp Pulse Resp BP Pulse Ox O2 Del Method O2 Flow Rate 36.3 C 86 22 144/103 98 Oxymask 4 11/03/22 07:48 11/03/22 07:48 11/03/22 07:48 11/03/22 07:48 11/03/22 07:48 11/03/22 07:48 11/03/22 07:48 Period Temp Pulse Resp BP Sys/Duncan Pulse Ox O2 Del Method O2 Flow Rate Last 24 Hr 36.3 C-37.3 C 78-98 20-24 140-165/75-103 96-98 Nasal Cannula- Oxymask 4-5 Intake and Output 11/02/22 11/03/22 11/03/22 19:59 03:59 11:59 Intake Total 960 240 240 Output Total 2400 975 400 Balance -1440 -735 -160 Weight 161.932 kg 155.945 kg Intake & Output: Intake & Output 11/02/22 11/03/22 11/03/22 19:59 03:59 11:59 Intake Total 960 240 240 Output Total 2400 975 400 Balance -1440 -735 -160 Weight 161.932 kg 155.945 kg Intake: Oral 960 240 240 Output: Void Amount 2400 975 400 Other: Meal Dinner Jello X2 Percent of Meal Consumed 100% 100% Feeding Ability Independent Independent Independent Urine Appearance Clear Clear Clear Urine Color Pale Yellow Yellow Urine Odor Normal Normal Stool Size Copious Large Stool Color Brown Brown Black Black Blood Tinged Stool Consistency Soft Soft # Bowel Movements 1 1 Head Head exam: Present atraumatic and normal inspection Eye Eye exam: Present normal appearance ENT ENT exam: Present mucous membranes moist, normal exam and normal external ear exam Additional comments: OxyMask in place Neck Neck exam: Present normal inspection Respiratory Respiratory exam: Present rhonchi and wheezes Cardiovascular Cardiovascular exam: Present normal rate and rhythm GI/Abdominal GI/Abdominal exam: Present normal bowel sounds Extremities Exam Extremities exam: Present pedal edema Back Exam Back exam: Present normal inspection Neurological Exam Neurological exam: Present alert and oriented X3 Skin Skin exam: Present intact and warm OBJ DATA Labs 11/03/22 05:51 11/03/22 05:51 Labs: Abnormal Lab Results 11/03/22 11/03/22 11/02/22 05:51 05:51 05:32 RBC 4.29 L Hgb 11.9 L MCHC 28.8 L RDW 14.9 H Immature Gran % (Auto) Neut % (Auto) Lymph % (Auto) 9.1 L [place] % (Auto) 12.8 H Lymph # (Auto) 0.59 L POC Sodium Sodium 129 L 131 L POC Chloride Chloride 88 L 92 L Carbon Dioxide 36 H 36 H POC Total CO2 Anion Gap 5.0 L 3.0 L POC Glucose Hemoglobin A1c 6.3 H NT-Pro-B Natriuret Pep Urine Protein 11/02/22 11/01/22 11/01/22 05:32 12:45 12:44 RBC 4.25 L 4.58 L Hgb 12.0 L 13.0 L MCHC 29.7 L 30.2 L RDW 15.0 H 14.8 H Immature Gran % (Auto) 0.7 H Neut % (Auto) 78.1 H Lymph % (Auto) 14.4 L 10.5 L [place] % (Auto) 12.9 H Lymph # (Auto) 0.76 L 0.57 L POC Sodium Sodium POC Chloride Chloride Carbon Dioxide POC Total CO2 Anion Gap POC Glucose Hemoglobin A1c NT-Pro-B Natriuret Pep 7230.0 H Urine Protein 11/01/22 11/01/22 12:25 12:15 RBC Hgb MCHC RDW Immature Gran % (Auto) Neut % (Auto) Lymph % (Auto) [place] % (Auto) Lymph # (Auto) POC Sodium 130 L Sodium POC Chloride 89 L Chloride Carbon Dioxide POC Total CO2 34.0 H Anion Gap POC Glucose 141 H Hemoglobin A1c NT-Pro-B Natriuret Pep Urine Protein 100 A Meds: Medications Acetaminophen (Acetaminophen 325 Mg Tablet) 650 mg PO Q6HP PRN; Protocol PRN Reason: Per Pain Protocol/Fever > 101 Albuterol Sulfate (Albuterol Sulfate 60 Puff Inhaler) 2 puff INH Q6HP PRN PRN Reason: shortness of breath or wheezin Last Admin: 11/02/22 13:44 Dose: 2 inh Albuterol/Ipratropium (Ipratropium/Albuterol 3 Ml Ampul.Neb) 3 ml NEB Q4HRT PRN PRN Reason: Wheezing Last Admin: 11/02/22 14:00 Dose: 3 ml Amlodipine Besylate (Amlodipine 5 Mg Tablet) 5 mg PO QDAY [facility] Last Admin: 11/03/22 08:07 Dose: 5 mg Ceftriaxone Sodium (Ceftriaxone 1 Gm Vial) 1 gm IV Q24H [facility] Last Admin: 11/03/22 09:08 Dose: 1 gm Docusate Sodium (Docusate Sodium 100 Mg Capsule) 100 mg PO BID [facility] Last Admin: 11/03/22 08:07 Dose: 100 mg Enoxaparin Sodium (Enoxaparin 40 Mg/0.4 Ml Syringe) 40 mg SQ DAILY [facility] Last Admin: 11/03/22 08:06 Dose: 40 mg Escitalopram Oxalate (Escitalopram 10 Mg Tablet) 10 mg PO QDAY [facility] Last Admin: 11/03/22 08:06 Dose: 10 mg Furosemide (Furosemide 40 Mg/4 Ml Vial) 40 mg IV BIDD [facility] Last Admin: 11/03/22 08:06 Dose: 40 mg Guaifenesin (Guaifenesin/Dextromethorphan 5ml Ud Cup) 10 ml PO Q4HP PRN PRN Reason: Cough Azithromycin 500 mg/ Dextrose 250 mls @ 250 mls/hr IV Q24H [facility]; Protocol Stop: 11/03/22 10:59 Last Admin: 11/03/22 09:09 Dose: 250 mls/hr Lorazepam (Lorazepam 1 Mg Tablet) 1 mg PO Q4HP PRN PRN Reason: ANXIETY/SEDATION Last Admin: 11/03/22 00:58 Dose: 1 mg Losartan Potassium (Losartan 25 Mg Tablet) 25 mg PO DAILY [facility] Last Admin: 11/03/22 08:06 Dose: 25 mg Methocarbamol (Methocarbamol 500 Mg Tablet) 500 mg PO BID [facility] Last Admin: 11/03/22 08:07 Dose: 500 mg Morphine Sulfate (Morphine 4 Mg/Ml Vial) 4 mg IV Q4HP PRN; Protocol PRN Reason: Per Pain Protocol Nicotine (Nicotine 21 Mg Patch) 21 mg TOPICAL DAILY@1000 [facility] Last Admin: 11/03/22 09:08 Dose: 21 mg Nicotine (Nicotine 14 Mg Patch) 14 mg TOPICAL DAILY@1000 [facility] Last Admin: 11/03/22 09:08 Dose: 14 mg Nortriptyline HCl (Nortriptyline 10 Mg Capsule) 10 mg PO QHS [facility] Last Admin: 11/02/22 20:53 Dose: 10 mg Ondansetron HCl (Ondansetron 4 Mg/2 Ml Vial) 4 mg IV Q6HP PRN PRN Reason: Nausea And Vomiting Oxycodone/Acetaminophen (Oxycodone/Apap 5/325mg Tablet) 1 tab PO Q6HP PRN; Protocol PRN Reason: Per Pain Protocol Last Admin: 11/03/22 08:07 Dose: 1 tab Pantoprazole Sodium (Pantoprazole 40 Mg Tablet) 40 mg PO QAMAC [facility] Last Admin: 11/03/22 08:07 Dose: 40 mg Senna (Sennosides 1 Tablet) 2 tab PO HS [facility] Last Admin: 11/02/22 20:53 Dose: 2 tab Sodium Chloride (0.9 % Sodium Chloride 10 Ml Syringe) 10 ml IV Q8 [facility] Last Admin: 11/03/22 05:15 Dose: Not Given Spironolactone (Spironolactone 25 Mg Tablet) 25 mg PO DAILY [facility] Zolpidem Tartrate (Zolpidem 5 Mg Tablet) 5 mg PO HSP PRN PRN Reason: Insomnia Last Admin: 11/02/22 20:53 Dose: 5 mg A/P Assessment and plan (1) CAD (coronary artery disease): Status: Chronic (2) CHF exacerbation: Status: Acute (3) Community acquired pneumonia: Status: Acute (4) GERD (gastroesophageal reflux disease): Status: Chronic (5) Anxiety and depression: Status: Chronic (6) COPD (chronic obstructive pulmonary disease): Status: Chronic (7) Morbid obesity: Status: Chronic (8) Essential hypertension: Status: Acute (9) Cigarette smoker: Status: Acute Narrative A/P Narrative: Assessment and Plans: 1. CHF exacerbation: Inpatient med surg Supplemental oxygen therapy titrate to achieve spo2>=88-92% Strict intake and output measurement Daily weigh 2000cc/day fluid restriction Lasix 40mg IV BID No beta thu at time of exacerbation, will add at time of hospital discharge Losartan Add Aldactone Physical therapy evaluation and treatment recs. home health services upon discharge 2D echocardiogram showing reduced left systolic ejection functions with estimated LVEF 25 to 30%. No diastolic dysfunction identified. The right v entricle is severely dilated, right ventricular systolic function is normal 2. Community acquired pneumonia: Serial lactic acid 1.4 Procalcitonin level Blood culture, no growth to date cbc w/ auto diff in the morning to trend WBC Rocephin Zithromax Supplemental oxygen therapy titrate to achieve spo2>=88-92% 3. h/o COPD, stable: Continue bronchodilators Supplemental oxygen therapy titrate to achieve spo2>=88-92% 4. Essential hypertension: Amlodipine Losartan Lasix 40mg IV BID Add Aldactone 5. Anxiety/depression: Escitalopram Nortriptyline 6. h/o CAD: Continue to monitor 7. h/o PAD: Continue to monitor 8. GERD: PPI 9. Cigarette smoker: Nicotine replacement therapy 10. Obesity: Salvage [employer] patient on life style modifications including regular exercise and healthy diet in order to lose weight GI ppx: PPI DVT ppx: Lovenox Code status: DNR Prognosis: guarded Disposition: inpatient med surg; PT-->HH Time Spent With Patient Time: Total time spent is greater than 50% in coordination of care (as documented) at patient's floor/unit and/or counseling patient: Subsequent: Total time with patient: 35 - 49 minutes
[2022-11-03] MEDS: SPIRONOLACTONE 25 MG TABLET PO SCH (10:57)
--- NOTE | 2022-11-03 12:15 | EKG ---
[facility] Test Date: 2022-11-01 Pat Name: Chet Silver Department: ED Room: Gender: Male [place] [facility] [place] 1945 Requested By: Musa Vaz Order Number: [id number] Reading MD: Larry Estrada Measurements Intervals [place] Rate: 103 P: 5 MO: 212 QRS: 46 QRSD: 112 T: 5 QT: 341 QTc: 447 Interpretive Statements Sinus tachycardia Borderline prolonged MO interval Electronically Signed On 11-03-2022 12:15:49 PST by Larry Estrada /[id number]
[2022-11-03] MEDS: NORTRIPTYLINE 10 MG CAPSULE PO SCH (20:46)
[2022-11-03] MEDS: ZOLPIDEM 5 MG TABLET PO PRN (20:47)
[2022-11-03] MEDS: SENNOSIDES 1 TABLET PO SCH (20:48)
[2022-11-04] MEDS: LORazepam 1 MG TABLET PO PRN (02:09)
[2022-11-04] MEDS: 0.9 % SODIUM CHLORIDE 10 ML SYRINGE IV SCH ×3 (06:00→20:43)
[2022-11-04 07:30] LABS: Basophils # (Auto) 0.01 K/mcL (0.00-0.30); Basophils % (Auto) 0.2 % (0.0-2.0); Eosinophils # (Auto) 0.03 K/mcL (0.00-0.70); Eosinophils % (Auto) 0.6 % (0.0-7.0); Hematocrit 39.6 % (40.1-51.0); Hemoglobin 11.8 g/dL (13.7-17.5); Lymphocytes # (Auto) 0.53 K/mcL (1.50-4.80); Lymphocytes % (Auto) 11.2 % (15.5-49.0); Mean Cell Volume 94.1 fL (80.0-100.0); Mean Corpuscular HGB Conc 29.8 g/dL (31.0-36.0); Monocytes # (Auto) 0.66 K/mcL (0.10-0.90); Neutrophils % (Auto) 73.6 % (38.0-78.0); Platelet Count 172 K/mcL (140-440); RBC 4.21 M/mcL (4.63-6.08); Red Cell Distribution Width 14.7 % (11.5-14.5); WBC 4.7 K/mcL (4.5-11.0)
[2022-11-04] MEDS: SPIRONOLACTONE 25 MG TABLET PO SCH (08:28)
[2022-11-04 08:29] LABS: ALT/SGPT 12 U/L (<40); AST/SGOT 20 U/L (<40); Albumin 3.7 gm/dL (3.2-5.2); Albumin/Globulin Ratio 1.4 (1.0-2.3); Alkaline Phosphatase 62 U/L (39-117); Bilirubin,Total 0.5 mg/dL (0.1-1.0); Blood Urea Nitrogen 14 mg/dL (8-23); Calcium 9.8 mg/dL (8.6-10.4); Carbon Dioxide 37 mmol/L (22-30); Chloride 89 mmol/L (96-108); Globulin 2.6 gm/dL (2.2-3.7); Glomerular Filtration Rate 65; Glucose 99 mg/dL (70-105)
[2022-11-04] MEDS: oxyCODONE/APAP 5/325MG TABLET PO PRN ×2 (08:29→21:19)
[2022-11-04] MEDS: ESCITALOPRAM 10 MG TABLET PO SCH (08:29)
[2022-11-04] MEDS: DOCUSATE SODIUM 100 MG CAPSULE PO SCH ×2 (08:29→20:43)
[2022-11-04] MEDS: METHOCARBAMOL 500 MG TABLET PO SCH ×2 (08:29→20:43)
[2022-11-04] MEDS: LOSARTAN 25 MG TABLET PO SCH (08:29)
[2022-11-04] MEDS: PANTOPRAZOLE 40 MG TABLET PO SCH (08:29)
[2022-11-04] MEDS: amLODIPine 5 MG TABLET PO SCH (08:29)
[2022-11-04] MEDS: FUROSEMIDE 40 MG/4 ML VIAL IV SCH (08:30)
[2022-11-04] MEDS: ENOXAPARIN 40 MG/0.4 ML SYRINGE SQ SCH (08:30)
[2022-11-04] MEDS: NICOTINE 14 MG PATCH TOPICAL SCH (09:56)
[2022-11-04] MEDS: cefTRIAXone 1 GM VIAL IV SCH (09:56)
[2022-11-04] MEDS: NICOTINE 21 MG PATCH TOPICAL SCH (09:56)
--- NOTE | 2022-11-04 11:35 | Internal Med Progress Note ---
SUBJECTIVE Subjective Patient information: Note initiated : 11/04/22 at 11:31 am Service Date, if different from initiated Date: [] Patient: Chet Silver 77 y/o M admitted on 11/01/22 for Sob/swelling of legs; CHF. Chief Complaint: [] Interval history: Mr. Silver is a 77 year old M history of COPD, CHF, essential hypertensions, anxiety/depressions, CAD, PAD, GERD, smoker, presenting with 9-month history of progressively worsening abdominal pain and distention's. He is complaining of abdominal pain and distention and associated shortness of breath. He is committing of the pill exertion with 50 feet's. He is complaining of unintentional weight gain but he cannot quantify it. He is complain of bilateral leg swellings. He sleeps in a recliner. He does not use oxygen at home. He is coming of cough with brown sputum. He is coming of respiratory symptoms. He denies any fever, chills, or diaphoresis. He denies any chest pain or palpitations. Vital signs at ED presentation significant for oxygen desaturating to 88 on room air as well as tachycardia with heart rate up to the low 100s. Labs significant for lack of leukocytosis with WBC 5.4. BNP 7230. COVID influenza and RSV screening pending. Abdominal x-ray showing no evidence of fecal impaction or acute abnormalities in the abdomen. Chest x-ray showing mild congestive heart failure with possible superimposed pneumonia in the right lower lobe. Admission request is called for CHF exacerbation as well as community-acquired pneumonia. 11/02: Patient is currently on 5 L/min OxyMask. Afebrile overnight. WBC 5.3 this morning. Cultures no growth today. Echocardiogram performed and reports pending. Patient is still coming of the same degree of shortness of breath and chest pressure. He is coming of cough with brown sputum productions as well as respiratory wheezings. He denies fever chills or diaphoresis. Continue supplemental oxygen therapy and will wean down/off as tolerated by the patient's. Continue IV Lasix and ARB while waiting for echocardiogram report to make final medications adjustment. Continue Rocephin and azithromycin for pneumonia. Continue physical therapy evaluation and treatment for placement planning. 11/03: 2D echocardiogram showing reduced left systolic ejection functions with estimated LVEF 25 to 30%. No diastolic dysfunction identified. The right ventricle is severely dilated, right ventricular systolic function is normal. Patient is currently on 4 L/min nasal cannula oxygen. Patient has been afebrile overnight. Cultures no growth to date. Continue to wean supplemental oxygen therapy as tolerated by the patient. Okay to DC cardiac monitoring. Continue Rocephin and azithromycin while monitoring for blood culture result for pneumonia. Add Aldactone while continuing IV Lasix and losartan and for CHF exacerbations. Add beta-thu at time of hospital discharge. Physical therapist evaluated the patient and recommend home health services at time of discharge. We will keep the patient on MedSurg today. 11/04: Patient has been afebrile overnight. Cultures no growth to date. Patient is currently on 3.5L/min oxygen mask. Good urine output with overall negative fluid balance over the past 24 hours. Patient is c/o mild shortness of breath. He is c/o improving general body weakness. Continue to wean supplemental oxygen therapy as tolerated by the patient. Continue Rocephin and azithromycin while monitoring for blood culture result for pneumonia. Lasix 40mg PO BID, Losartan, and Aldactone for CHF exacerbation. Add beta-thu at time of hospital discharge. Physical therapist evaluated the p atient and recommend home health services at time of discharge. We will keep the patient on MedSurg today. Constitutional Vitals: Vital Signs Temp Pulse Resp BP Pulse Ox O2 Del Method O2 Flow Rate 37.4 C H 98 H 24 H 155/83 97 Oxymask 3.5 11/04/22 08:00 11/04/22 08:00 11/04/22 08:00 11/04/22 08:00 11/04/22 04:10 11/04/22 08:00 11/04/22 08:00 Period Temp Pulse Resp BP Sys/Duncan Pulse Ox O2 Del Method O2 Flow Rate Last 24 Hr 37.0 C-37.4 C 85-103 20-32 115-165/68-92 3-98 Oxymask-Room Air 3-4 Intake and Output 11/03/22 11/04/22 11/04/22 19:59 03:59 11:59 Intake Total 1580 240 480 Output Total 1300 900 301 Balance 280 -660 179 Weight 139.253 kg Intake & Output: Intake & Output 11/03/22 11/04/22 11/04/22 19:59 03:59 11:59 Intake Total 1580 240 480 Output Total 1300 900 301 Balance 280 -660 179 Weight 139.253 kg Intake: Oral 1580 240 480 Output: Void Amount 1300 900 300 # of times incontinent of urine 1 Other: Meal Dinner Jello Percent of Meal Consumed 100% 100% Feeding Ability Independent Urine Appearance Clear Clear Clear Urine Color Yellow Yellow Yellow Pale Pale Urine Odor Normal Normal # Voids 2 1 Head Head exam: Present atraumatic and normal inspection Eye Eye exam: Present normal appearance ENT ENT exam: Present mucous membranes moist, normal exam and normal external ear exam Additional comments: OxyMask in place Neck Neck exam: Present normal inspection Respiratory Respiratory exam: Present decreased breath sounds and wheezes Cardiovascular Cardiovascular exam: Present normal rate and rhythm GI/Abdominal GI/Abdominal exam: Present normal bowel sounds Extremities Exam Extremities exam: Present pedal edema Back Exam Back exam: Present normal inspection Neurological Exam Neurological exam: Present alert and oriented X3 Skin Skin exam: Present intact and warm OBJ DATA Labs 11/04/22 05:53 11/04/22 05:53 Labs: Abnormal Lab Results 11/04/22 11/04/22 11/03/22 05:53 05:53 05:51 RBC 4.21 L Hgb 11.8 L Hct 39.6 L MCHC 29.8 L RDW 14.7 H Immature Gran % (Auto) Neut % (Auto) Lymph % (Auto) 11.2 L [place] % (Auto) 14.0 H Lymph # (Auto) 0.53 L POC Sodium Sodium 131 L 129 L POC Chloride Chloride 89 L 88 L Carbon Dioxide 37 H 36 H POC Total CO2 Anion Gap 5.0 L 5.0 L POC Glucose Hemoglobin A1c NT-Pro-B Natriuret Pep Urine Protein 11/03/22 11/02/22 11/02/22 05:51 05:32 05:32 RBC 4.29 L 4.25 L Hgb 11.9 L 12.0 L Hct MCHC 28.8 L 29.7 L RDW 14.9 H 15.0 H Immature Gran % (Auto) Neut % (Auto) Lymph % (Auto) 9.1 L 14.4 L [place] % (Auto) 12.8 H 12.9 H Lymph # (Auto) 0.59 L 0.76 L POC Sodium Sodium 131 L POC Chloride Chloride 92 L Carbon Dioxide 36 H POC Total CO2 Anion Gap 3.0 L POC Glucose Hemoglobin A1c 6.3 H NT-Pro-B Natriuret Pep Urine Protein 11/01/22 11/01/22 11/01/22 12:45 12:44 12:25 RBC 4.58 L Hgb 13.0 L Hct MCHC 30.2 L RDW 14.8 H Immature Gran % (Auto) 0.7 H Neut % (Auto) 78.1 H Lymph % (Auto) 10.5 L [place] % (Auto) Lymph # (Auto) 0.57 L POC Sodium 130 L Sodium POC Chloride 89 L Chloride Carbon Dioxide POC Total CO2 34.0 H Anion Gap POC Glucose 141 H Hemoglobin A1c NT-Pro-B Natriuret Pep 7230.0 H Urine Protein 11/01/22 12:15 RBC Hgb Hct MCHC RDW Immature Gran % (Auto) Neut % (Auto) Lymph % (Auto) [place] % (Auto) Lymph # (Auto) POC Sodium Sodium POC Chloride Chloride Carbon Dioxide POC Total CO2 Anion Gap POC Glucose Hemoglobin A1c NT-Pro-B Natriuret Pep Urine Protein 100 A Meds: Medications Acetaminophen (Acetaminophen 325 Mg Tablet) 650 mg PO Q6HP PRN; Protocol PRN Reason: Per Pain Protocol/Fever > 101 Albuterol Sulfate (Albuterol Sulfate 60 Puff Inhaler) 2 puff INH Q6HP PRN PRN Reason: shortness of breath or wheezin Last Admin: 11/02/22 13:44 Dose: 2 inh Albuterol/Ipratropium (Ipratropium/Albuterol 3 Ml Ampul.Neb) 3 ml NEB Q4HRT PRN PRN Reason: Wheezing Last Admin: 11/02/22 14:00 Dose: 3 ml Amlodipine Besylate (Amlodipine 5 Mg Tablet) 5 mg PO QDAY [facility] Last Admin: 11/04/22 08:29 Dose: 5 mg Ceftriaxone Sodium (Ceftriaxone 1 Gm Vial) 1 gm IV Q24H [facility] Last Admin: 11/04/22 09:56 Dose: 1 gm Docusate Sodium (Docusate Sodium 100 Mg Capsule) 100 mg PO BID [facility] Last Admin: 11/04/22 08:29 Dose: 100 mg Enoxaparin Sodium (Enoxaparin 40 Mg/0.4 Ml Syringe) 40 mg SQ DAILY [facility] Last Admin: 11/04/22 08:30 Dose: 40 mg Escitalopram Oxalate (Escitalopram 10 Mg Tablet) 10 mg PO QDAY [facility] Last Admin: 11/04/22 08:29 Dose: 10 mg Furosemide (Furosemide 40 Mg Tablet) 40 mg PO BIDD [facility] Guaifenesin (Guaifenesin/Dextromethorphan 5ml Ud Cup) 10 ml PO Q4HP PRN PRN Reason: Cough Losartan Potassium (Losartan 25 Mg Tablet) 25 mg PO DAILY [facility] Last Admin: 11/04/22 08:29 Dose: 25 mg Methocarbamol (Methocarbamol 500 Mg Tablet) 500 mg PO BID [facility] Last Admin: 11/04/22 08:29 Dose: 500 mg Morphine Sulfate (Morphine 4 Mg/Ml Vial) 4 mg IV Q4HP PRN; Protocol PRN Reason: Per Pain Protocol Nicotine (Nicotine 21 Mg Patch) 21 mg TOPICAL DAILY@1000 [facility] Last Admin: 11/04/22 09:56 Dose: 21 mg Nicotine (Nicotine 14 Mg Patch) 14 mg TOPICAL DAILY@1000 [facility] Last Admin: 11/04/22 09:56 Dose: 14 mg Nortriptyline HCl (Nortriptyline 10 Mg Capsule) 10 mg PO QHS [facility] Last Admin: 11/03/22 20:46 Dose: 10 mg Ondansetron HCl (Ondansetron 4 Mg/2 Ml Vial) 4 mg IV Q6HP PRN PRN Reason: Nausea And Vomiting Oxycodone/Acetaminophen (Oxycodone/Apap 5/325mg Tablet) 1 tab PO Q6HP PRN; Protocol PRN Reason: Per Pain Protocol Last Admin: 11/04/22 08:29 Dose: 1 tab Pantoprazole Sodium (Pantoprazole 40 Mg Tablet) 40 mg PO QAMAC [facility] Last Admin: 11/04/22 08:29 Dose: 40 mg Senna (Sennosides 1 Tablet) 2 tab PO HS [facility] Last Admin: 11/03/22 20:48 Dose: 2 tab Sodium Chloride (0.9 % Sodium Chloride 10 Ml Syringe) 10 ml IV Q8 [facility] Last Admin: 11/04/22 06:00 Dose: 10 ml Spironolactone (Spironolactone 25 Mg Tablet) 25 mg PO DAILY [facility] Last Admin: 11/04/22 08:28 Dose: 25 mg Zolpidem Tartrate (Zolpidem 5 Mg Tablet) 5 mg PO HSP PRN PRN Reason: Insomnia Last Admin: 11/03/22 20:47 Dose: 5 mg A/P Assessment and plan (1) CAD (coronary artery disease): Status: Chronic (2) CHF exacerbation: Status: Acute (3) Community acquired pneumonia: Status: Acute (4) GERD (gastroesophageal reflux disease): Status: Chronic (5) Anxiety and depression: Status: Chronic (6) COPD (chronic obstructive pulmonary disease): Status: Chronic (7) Morbid obesity: Status: Chronic (8) Essential hypertension: Status: Acute (9) Cigarette smoker: Status: Acute Narrative A/P Narrative: Assessment and Plans: 1. CHF exacerbation: Inpatient med surg Supplemental oxygen therapy titrate to achieve spo2>=88-92% Strict intake and output measurement Daily weigh 2000cc/day fluid restriction Lasix 40mg PO BID No beta thu at time of exacerbation, will add at time of hospital discharge Losartan Add Aldactone Physical therapy evaluation and treatment recs. home health services upon discharge 2D echocardiogram showing reduced left systolic ejection functions with estimated LVEF 25 to 30%. No diastolic dysfunction identified. The right ventricle is severely dilated, right ventricular systolic function is normal 2. Community acquired pneumonia: Serial lactic acid 1.4 Procalcitonin level Blood culture, no growth to date cbc w/ auto diff in the morning to trend WBC Rocephin Zithromax Supplemental oxygen therapy titrate to achieve spo2>=88-92% 3. h/o COPD, stable: Continue bronchodilators Supplemental oxygen therapy titrate to achieve spo2>=88-92% 4. Essential hypertension: Amlodipine Losartan Lasix 40mg PO BID Add Aldactone 5. Anxiety/depression: Escitalopram Nortriptyline 6. h/o CAD: Continue to monitor 7. h/o PAD: Continue to monitor 8. GERD: PPI 9. Cigarette smoker: Nicotine replacement therapy 10. Obesity: Engraver patient on life style modifications including regular exercise and healthy diet in order to lose weight GI ppx: PPI DVT ppx: Lovenox Code status: DNR Prognosis: guarded Disposition: inpatient med surg; PT-->HH Time Spent With Patient Time: Total time spent is greater than 50% in coordination of care (as documented) at patient's floor/unit and/or counseling patient: Subsequent: Total time with patient: 35 - 49 minutes
[2022-11-04] MEDS: FUROSEMIDE 40 MG TABLET PO SCH (15:35)
[2022-11-04] MEDS: SENNOSIDES 1 TABLET PO SCH (20:43)
[2022-11-04] MEDS: ZOLPIDEM 5 MG TABLET PO PRN (20:43)
[2022-11-04] MEDS: NORTRIPTYLINE 10 MG CAPSULE PO SCH (20:43)
[2022-11-05] MEDS: morphine 4 MG/ML VIAL IV PRN ×2 (00:06→19:03)
[2022-11-05] MEDS: 0.9 % SODIUM CHLORIDE 10 ML SYRINGE IV SCH ×3 (06:19→21:42)
[2022-11-05] MEDS: PANTOPRAZOLE 40 MG TABLET PO SCH (07:57)
[2022-11-05] MEDS: FUROSEMIDE 40 MG TABLET PO SCH ×2 (07:57→16:35)
[2022-11-05 08:30] LABS: Basophils # (Auto) 0.04 K/mcL (0.00-0.30); Eosinophils # (Auto) 0.11 K/mcL (0.00-0.70); Eosinophils % (Auto) 2.7 % (0.0-7.0); Hematocrit 39.4 % (40.1-51.0); Hemoglobin 11.5 g/dL (13.7-17.5); Lymphocytes # (Auto) 0.69 K/mcL (1.50-4.80); Mean Cell Volume 95.4 fL (80.0-100.0); Mean Corpuscular HGB Conc 29.2 g/dL (31.0-36.0); Mean Platelet Volume 9.2 fL (8.8-12.5); Monocytes # (Auto) 0.64 K/mcL (0.10-0.90); Monocytes % (Auto) 15.8 % (1.0-12.0); Neutrophils % (Auto) 63.3 % (38.0-78.0); Platelet Count 175 K/mcL (140-440); RBC 4.13 M/mcL (4.63-6.08); Red Cell Distribution Width 14.6 % (11.5-14.5); WBC 4.1 K/mcL (4.5-11.0)
[2022-11-05 08:48] LABS: ALT/SGPT 13 U/L (<40); AST/SGOT 21 U/L (<40); Albumin 3.9 gm/dL (3.2-5.2); Albumin/Globulin Ratio 1.6 (1.0-2.3); Alkaline Phosphatase 59 U/L (39-117); Bilirubin,Total 0.5 mg/dL (0.1-1.0); Blood Urea Nitrogen 14 mg/dL (8-23); Calcium 9.8 mg/dL (8.6-10.4); Carbon Dioxide 40 mmol/L (22-30); Chloride 89 mmol/L (96-108); Globulin 2.5 gm/dL (2.2-3.7); Glomerular Filtration Rate 65; Glucose 102 mg/dL (70-105)
[2022-11-05] MEDS: ENOXAPARIN 40 MG/0.4 ML SYRINGE SQ SCH (08:50)
[2022-11-05] MEDS: METHOCARBAMOL 500 MG TABLET PO SCH ×2 (08:51→20:49)
[2022-11-05] MEDS: SPIRONOLACTONE 25 MG TABLET PO SCH (08:51)
[2022-11-05] MEDS: DOCUSATE SODIUM 100 MG CAPSULE PO SCH ×2 (08:51→20:50)
[2022-11-05] MEDS: amLODIPine 5 MG TABLET PO SCH (08:51)
[2022-11-05] MEDS: ESCITALOPRAM 10 MG TABLET PO SCH (08:51)
[2022-11-05] MEDS: LOSARTAN 25 MG TABLET PO SCH (08:51)
[2022-11-05] MEDS: NICOTINE 21 MG PATCH TOPICAL SCH (09:04)
[2022-11-05] MEDS: cefTRIAXone 1 GM VIAL IV SCH (09:04)
[2022-11-05] MEDS: NICOTINE 14 MG PATCH TOPICAL SCH (09:04)
--- NOTE | 2022-11-05 16:52 | Internal Med Progress Note ---
SUBJECTIVE Subjective Patient information: Note initiated : 11/05/22 at 4:48 pm Service Date, if different from initiated Date: [] Patient: Chet Silver 77 y/o M admitted on 11/01/22 for Sob/swelling of legs; CHF. Chief Complaint: [] Interval history: Mr. Silver is a 77 year old M history of COPD, CHF, essential hypertensions, anxiety/depressions, CAD, PAD, GERD, smoker, presenting with 9-month history of progressively worsening abdominal pain and distention's. He is complaining of abdominal pain and distention and associated shortness of breath. He is committing of the pill exertion with 50 feet's. He is complaining of unintentional weight gain but he cannot quantify it. He is complain of bilateral leg swellings. He sleeps in a recliner. He does not use oxygen at home. He is coming of cough with brown sputum. He is coming of respiratory symptoms. He denies any fever, chills, or diaphoresis. He denies any chest pain or palpitations. Vital signs at ED presentation significant for oxygen desaturating to 88 on room air as well as tachycardia with heart rate up to the low 100s. Labs significant for lack of leukocytosis with WBC 5.4. BNP 7230. COVID influenza and RSV screening pending. Abdominal x-ray showing no evidence of fecal impaction or acute abnormalities in the abdomen. Chest x-ray showing mild congestive heart failure with possible superimposed pneumonia in the right lower lobe. Admission request is called for CHF exacerbation as well as community-acquired pneumonia. 11/02: Patient is currently on 5 L/min OxyMask. Afebrile overnight. WBC 5.3 this morning. Cultures no growth today. Echocardiogram performed and reports pending. Patient is still coming of the same degree of shortness of breath and chest pressure. He is coming of cough with brown sputum productions as well as respiratory wheezings. He denies fever chills or diaphoresis. Continue supplemental oxygen therapy and will wean down/off as tolerated by the patient's. Continue IV Lasix and ARB while waiting for echocardiogram report to make final medications adjustment. Continue Rocephin and azithromycin for pneumonia. Continue physical therapy evaluation and treatment for placement planning. 11/03: 2D echocardiogram showing reduced left systolic ejection functions with estimated LVEF 25 to 30%. No diastolic dysfunction identified. The right ventricle is severely dilated, right ventricular systolic function is normal. Patient is currently on 4 L/min nasal cannula oxygen. Patient has been afebrile overnight. Cultures no growth to date. Continue to wean supplemental oxygen therapy as tolerated by the patient. Okay to DC cardiac monitoring. Continue Rocephin and azithromycin while monitoring for blood culture result for pneumonia. Add Aldactone while continuing IV Lasix and losartan and for CHF exacerbations. Add beta-thu at time of hospital discharge. Physical therapist evaluated the patient and recommend home health services at time of discharge. We will keep the patient on MedSurg today. 11/04: Patient has been afebrile overnight. Cultures no growth to date. Patient is currently on 3.5L/min oxygen mask. Good urine output with overall negative fluid balance over the past 24 hours. Patient is c/o mild shortness of breath. He is c/o improving general body weakness. Continue to wean supplemental oxygen therapy as tolerated by the patient. Continue Rocephin and azithromycin while monitoring for blood culture result for pneumonia. Lasix 40mg PO BID, Losartan, and Aldactone for CHF exacerbation. Add beta-thu at time of hospital discharge. Physical therapist evaluated the patient and recommend home health services at time of discharge. We will keep the patient on MedSurg today. 11/05: Patient has over 900 cc negative fluid balance since the beginning of the morning shift. He is on 4 L of oxygen at rest and used up to 6 L/min of oxygen with ambulation of about 100 feet. Patient is feeling mild shortness of breath. He is also having cough and respiratory wheezings. He denies chest pain or pressure. He denies any fever chills or diaphoresis. He has been afebrile overnight. Blood culture no growth today. Continue oral Lasix, losartan, and Aldactone for CHF exacerbations. Add beta- thu at time of hospital discharge. Continue to wean supplemental oxygen therapy as tolerated by the patient. Continue Rocephin and azithromycin while monitoring for blood culture result for pneumonia. Current plan is to discharge the patient home with home health service tomorrow and likely with home oxygen. Constitutional Vitals: Vital Signs Temp Pulse Resp BP Pulse Ox O2 Del Method O2 Flow Rate 37.1 C 86 16 138/83 95 Oxymask 4 11/05/22 16:00 11/05/22 16:46 11/05/22 16:46 11/05/22 16:00 11/05/22 16:46 11/05/22 16:46 11/05/22 16:46 Period Temp Pulse Resp BP Sys/Duncan Pulse Ox O2 Del Method O2 Flow Rate Last 24 Hr 36.8 C-37.4 C 86-100 16-24 138-172/83-94 95-98 Nasal Cannula- Room Air 4-6 Intake and Output 11/05/22 11/05/22 11/05/22 03:59 11:59 19:59 Intake Total 330 600 150 Output Total 775 650 250 Balance -445 -50 -100 Weight 153.813 kg 153.813 kg Patient Weight 11/06/22 03:59 Weight 153.813 kg Intake & Output: Intake & Output 11/05/22 11/05/22 11/05/22 03:59 11:59 19:59 Intake Total 330 600 150 Output Total 775 650 250 Balance -445 -50 -100 Weight 153.813 kg 153.813 kg Intake: Oral 330 600 150 Output: Void Amount 775 650 250 Other: Meal 3x pk unsalted crackers. Breakfast Lunch Percent of Meal Consumed 100% 100% 75% Feeding Ability Independent Urine Appearance Clear Clear Clear Urine Color Yellow Yellow Yellow Urine Odor Normal Stool Size Large Stool Color Brown Stool Consistency Normal for Patient Head Head exam: Present atraumatic and normal inspection Eye Eye exam: Present normal appearance ENT ENT exam: Present mucous membranes moist, normal exam and normal external ear exam Additional comments: OxyMask in place Neck Neck exam: Present normal inspection Respiratory Respiratory exam: Present decreased breath sounds, rhonchi and wheezes Cardiovascular Cardiovascular exam: Present normal rate and rhythm GI/Abdominal GI/Abdominal exam: Present normal bowel sounds Extremities Exam Extremities exam: Present pedal edema Back Exam Back exam: Present normal inspection Neurological Exam Neurological exam: Present alert and oriented X3 Skin Skin exam: Present intact and warm OBJ DATA Labs 11/05/22 05:38 11/05/22 05:38 Labs: Abnormal Lab Results 11/05/22 11/05/22 11/04/22 05:38 05:38 05:53 WBC 4.1 L RBC 4.13 L Hgb 11.5 L Hct 39.4 L MCHC 29.2 L RDW 14.6 H Lymph % (Auto) [place] % (Auto) 15.8 H Lymph # (Auto) 0.69 L Sodium 131 L 131 L Chloride 89 L 89 L Carbon Dioxide 40 H 37 H Anion Gap 2.0 L 5.0 L 11/04/22 11/03/22 11/03/22 05:53 05:51 05:51 WBC RBC 4.21 L 4.29 L Hgb 11.8 L 11.9 L Hct 39.6 L MCHC 29.8 L 28.8 L RDW 14.7 H 14.9 H Lymph % (Auto) 11.2 L 9.1 L [place] % (Auto) 14.0 H 12.8 H Lymph # (Auto) 0.53 L 0.59 L Sodium 129 L Chloride 88 L Carbon Dioxide 36 H Anion Gap 5.0 L Meds: Medications Acetaminophen (Acetaminophen 325 Mg Tablet) 650 mg PO Q6HP PRN; Protocol PRN Reason: Per Pain Protocol/Fever > 101 Albuterol Sulfate (Albuterol Sulfate 60 Puff Inhaler) 2 puff INH Q6HP PRN PRN Reason: shortness of breath or wheezin Last Admin: 11/02/22 13:44 Dose: 2 inh Albuterol/Ipratropium (Ipratropium/Albuterol 3 Ml Ampul.Neb) 3 ml NEB Q4HRT PRN PRN Reason: Wheezing Last Admin: 11/02/22 14:00 Dose: 3 ml Amlodipine Besylate (Amlodipine 5 Mg Tablet) 5 mg PO QDAY [facility] Last Admin: 11/05/22 08:51 Dose: 5 mg Ceftriaxone Sodium (Ceftriaxone 1 Gm Vial) 1 gm IV Q24H [facility] Last Admin: 11/05/22 09:04 Dose: 1 gm Docusate Sodium (Docusate Sodium 100 Mg Capsule) 100 mg PO BID [facility] Last Admin: 11/05/22 08:51 Dose: 100 mg Enoxaparin Sodium (Enoxaparin 40 Mg/0.4 Ml Syringe) 40 mg SQ DAILY [facility] Last Admin: 11/05/22 08:50 Dose: 40 mg Escitalopram Oxalate (Escitalopram 10 Mg Tablet) 10 mg PO QDAY [facility] Last Admin: 11/05/22 08:51 Dose: 10 mg Furosemide (Furosemide 40 Mg Tablet) 40 mg PO BIDD [facility] Last Admin: 11/05/22 16:35 Dose: 40 mg Guaifenesin (Guaifenesin/Dextromethorphan 5ml Ud Cup) 10 ml PO Q4HP PRN PRN Reason: Cough Losartan Potassium (Losartan 25 Mg Tablet) 25 mg PO DAILY [facility] Last Admin: 11/05/22 08:51 Dose: 25 mg Methocarbamol (Methocarbamol 500 Mg Tablet) 500 mg PO BID [facility] Last Admin: 11/05/22 08:51 Dose: 500 mg Morphine Sulfate (Morphine 4 Mg/Ml Vial) 4 mg IV Q4HP PRN; Protocol PRN Reason: Per Pain Protocol Last Admin: 11/05/22 00:06 Dose: 4 mg Nicotine (Nicotine 21 Mg Patch) 21 mg TOPICAL DAILY@1000 [facility] Last Admin: 11/05/22 09:04 Dose: 21 mg Nicotine (Nicotine 14 Mg Patch) 14 mg TOPICAL DAILY@1000 [facility] Last Admin: 11/05/22 09:04 Dose: 14 mg Nortriptyline HCl (Nortriptyline 10 Mg Capsule) 10 mg PO QHS [facility] Last Admin: 11/04/22 20:43 Dose: 10 mg Ondansetron HCl (Ondansetron 4 Mg/2 Ml Vial) 4 mg IV Q6HP PRN PRN Reason: Nausea And Vomiting Oxycodone/Acetaminophen (Oxycodone/Apap 5/325mg Tablet) 1 tab PO Q6HP PRN; Protocol PRN Reason: Per Pain Protocol Last Admin: 11/04/22 21:19 Dose: 1 tab Pantoprazole Sodium (Pantoprazole 40 Mg Tablet) 40 mg PO QAMAC [facility] Last Admin: 11/05/22 07:57 Dose: 40 mg Senna (Sennosides 1 Tablet) 2 tab PO HS [facility] Last Admin: 11/04/22 20:43 Dose: Not Given Sodium Chloride (0.9 % Sodium Chloride 10 Ml Syringe) 10 ml IV Q8 [facility] Last Admin: 11/05/22 16:35 Dose: 10 ml Spironolactone (Spironolactone 25 Mg Tablet) 25 mg PO DAILY [facility] Last Admin: 11/05/22 08:51 Dose: 25 mg Zolpidem Tartrate (Zolpidem 5 Mg Tablet) 5 mg PO HSP PRN PRN Reason: Insomnia Last Admin: 11/04/22 20:43 Dose: 5 mg A/P Assessment and plan (1) CAD (coronary artery disease): Status: Chronic (2) CHF exacerbation: Status: Acute (3) Community acquired pneumonia: Status: Acute (4) GERD (gastroesophageal reflux disease): Status: Chronic (5) Anxiety and depression: Status: Chronic (6) COPD (chronic obstructive pulmonary disease): Status: Chronic (7) Morbid obesity: Status: Chronic (8) Essential hypertension: Status: Acute (9) Cigarette smoker: Status: Acute Narrative A/P Narrative: Assessment and Plans: 1. CHF exacerbation: Inpatient med surg Supplemental oxygen therapy titrate to achieve spo2>=88-92% Strict intake and output measurement Daily weigh 2000cc/day fluid restriction Lasix 40mg PO BID No beta thu at time of exacerbation, will add at time of hospital discharge Losartan Add Aldactone Physical therapy evaluation and treatment recs. home health services upon discharge 2D echocardiogram showing reduced left systolic ejection functions with estimated LVEF 25 to 30%. No diastolic dysfunction identified. The right ventricle is severely dilated, right ventricular systolic function is normal 2. Community acquired pneumonia: Serial lactic acid 1.4 Procalcitonin level Blood culture, no growth to date cbc w/ auto diff in the morning to trend WBC Rocephin Zithromax Supplemental oxygen therapy titrate to achieve spo2>=88-92% 3. h/o COPD, stable: Continue bronchodilators Supplemental oxygen therapy titrate to achieve spo2>=88-92% 4. Essential hypertension: Amlodipine Losartan Lasix 40mg PO BID Add Aldactone 5. Anxiety/depression: Escitalopram Nortriptyline 6. h/o CAD: Continue to monitor 7. h/o PAD: Continue to monitor 8. GERD: PPI 9. Cigarette smoker: Nicotine replacement therapy 10. 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
[2022-11-05] MEDS: SENNOSIDES 1 TABLET PO SCH (20:49)
[2022-11-05] MEDS: NORTRIPTYLINE 10 MG CAPSULE PO SCH (20:49)
[2022-11-05] MEDS: ZOLPIDEM 5 MG TABLET PO PRN (20:50)
[2022-11-06 07:16] LABS: Basophils # (Auto) 0.03 K/mcL (0.00-0.30); Basophils % (Auto) 0.8 % (0.0-2.0); Eosinophils # (Auto) 0.07 K/mcL (0.00-0.70); Eosinophils % (Auto) 1.8 % (0.0-7.0); Hematocrit 38.6 % (40.1-51.0); Hemoglobin 11.4 g/dL (13.7-17.5); Lymphocytes # (Auto) 0.47 K/mcL (1.50-4.80); Lymphocytes % (Auto) 11.9 % (15.5-49.0); Mean Cell Volume 94.4 fL (80.0-100.0); Mean Corpuscular HGB Conc 29.5 g/dL (31.0-36.0); Mean Platelet Volume 9.2 fL (8.8-12.5); Monocytes # (Auto) 0.58 K/mcL (0.10-0.90); Monocytes % (Auto) 14.6 % (1.0-12.0); Neutrophils % (Auto) 70.6 % (38.0-78.0); Platelet Count 158 K/mcL (140-440); RBC 4.09 M/mcL (4.63-6.08); Red Cell Distribution Width 14.4 % (11.5-14.5)
[2022-11-06 07:39] LABS: ALT/SGPT 11 U/L (<40); AST/SGOT 21 U/L (<40); Albumin 3.6 gm/dL (3.2-5.2); Albumin/Globulin Ratio 1.3 (1.0-2.3); Alkaline Phosphatase 56 U/L (39-117); Bilirubin,Total 0.5 mg/dL (0.1-1.0); Blood Urea Nitrogen 13 mg/dL (8-23); Calcium 10.1 mg/dL (8.6-10.4); Carbon Dioxide 39 mmol/L (22-30); Chloride 91 mmol/L (96-108); Globulin 2.7 gm/dL (2.2-3.7); Glomerular Filtration Rate 83; Glucose 107 mg/dL (70-105)
[2022-11-06] MEDS: 0.9 % SODIUM CHLORIDE 10 ML SYRINGE IV SCH (08:00)
[2022-11-06] MEDS: FUROSEMIDE 40 MG TABLET PO SCH (08:00)
[2022-11-06] MEDS: PANTOPRAZOLE 40 MG TABLET PO SCH (08:00)
[2022-11-06] MEDS: ENOXAPARIN 40 MG/0.4 ML SYRINGE SQ SCH (09:35)
[2022-11-06] MEDS: NICOTINE 21 MG PATCH TOPICAL SCH (09:35)
[2022-11-06] MEDS: cefTRIAXone 1 GM VIAL IV SCH (09:35)
[2022-11-06] MEDS: amLODIPine 5 MG TABLET PO SCH (09:35)
[2022-11-06] MEDS: SPIRONOLACTONE 25 MG TABLET PO SCH (09:35)
[2022-11-06] MEDS: NICOTINE 14 MG PATCH TOPICAL SCH (09:35)
[2022-11-06] MEDS: ESCITALOPRAM 10 MG TABLET PO SCH (09:35)
[2022-11-06] MEDS: DOCUSATE SODIUM 100 MG CAPSULE PO SCH (09:36)
[2022-11-06] MEDS: LOSARTAN 25 MG TABLET PO SCH (09:36)
[2022-11-06] MEDS: METHOCARBAMOL 500 MG TABLET PO SCH (09:36)
--- NOTE | 2022-11-06 09:39 | Discharge Summary ---
Discharge Provider Provider IMPORTANT FOLLOW-UP INFORMATION FOR PCP: Patient information: Note initiated : 11/06/22 at 9:36 am Service Date, if different from initiated Date: [] Patient: Chet Silver 77 y/o M admitted on 11/01/22 for Sob/swelling of legs; CHF. Chief Complaint: [] Date of admission: 11/01/22 17:08 Discharge date: 11/06/22 Primary care physician: Cory Tomlin DO Attending physician on admission: Vinny Bruno Consults: 11/01/22 Consult to Physician [CONS] Stat Comment: Consulting Provider: Vinny Bruno Reason For Exam: Physician to Consult Attending physician on discharge: Vinny Bruno COURSE Hospital Course Hospital course: Mr. Silver is a 77 year old M history of COPD, CHF, essential hypertensions, anxiety/depressions, CAD, PAD, GERD, smoker, presenting with 9-month history of progressively worsening abdominal pain and distention's. He is complaining of abdominal pain and distention and associated shortness of breath. He is committing of the pill exertion with 50 feet's. He is complaining of unintentional weight gain but he cannot quantify it. He is complain of bilateral leg swellings. He sleeps in a recliner. He does not use oxygen at home. He is coming of cough with brown sputum. He is coming of respiratory symptoms. He denies any fever, chills, or diaphoresis. He denies any chest pain or palpitations. Vital signs at ED presentation significant for oxygen desaturating to 88 on room air as well as tachycardia with heart rate up to the low 100s. Labs significant for lack of leukocytosis with WBC 5.4. BNP 7230. COVID influenza and RSV screening pending. Abdominal x-ray showing no evidence of fecal impaction or acute abnormalities in the abdomen. Chest x-ray showing mild congestive heart failure with possible superimposed pneumonia in the right lower lobe. Admission request is called for CHF exacerbation as well as community-acquired pneumonia. 11/02: Patient is currently on 5 L/min OxyMask. Afebrile overnight. WBC 5.3 this morning. Cultures no growth today. Echocardiogram performed and reports pending. Patient is still coming of the same degree of shortness of breath and chest pressure. He is coming of cough with brown sputum productions as well as respiratory wheezings. He denies fever chills or diaphoresis. Continue supplemental oxygen therapy and will wean down/off as tolerated by the patient's. Continue IV Lasix and ARB while waiting for echocardiogram report to make final medications adjustment. Continue Rocephin and azithromycin for pneumonia. Continue physical therapy evaluation and treatment for placement planning. 11/03: 2D echocardiogram showing reduced left systolic ejection functions with estimated LVEF 25 to 30%. No diastolic dysfunction identified. The right ventricle is severely dilated, right ventricular systolic function is normal. Patient is currently on 4 L/min nasal cannula oxygen. Patient has been afebrile overnight. Cultures no growth to date. Continue to wean supplemental oxygen therapy as tolerated by the patient. Okay to DC cardiac monitoring. Continue Rocephin and azithromycin while monitoring for blood culture result for pneumonia. Add Aldactone while continuing IV Lasix and losartan and for CHF exacerbations. Add beta-thu at time of hospital discharge. Physical therapist evaluated the patient and recommend home health services at time of discharge. We will keep the patient on MedSurg today. 11/04: Patient has been afebrile overnight. Cultures no growth to date. Patient is c urrently on 3.5L/min oxygen mask. Good urine output with overall negative fluid balance over the past 24 hours. Patient is c/o mild shortness of breath. He is c/o improving general body weakness. Continue to wean supplemental oxygen therapy as tolerated by the patient. Continue Rocephin and azithromycin while monitoring for blood culture result for pneumonia. Lasix 40mg PO BID, Losartan, and Aldactone for CHF exacerbation. Add beta-thu at time of hospital discharge. Physical therapist evaluated the patient and recommend home health services at time of discharge. We will keep the patient on MedSurg today. 11/05: Patient has over 900 cc negative fluid balance since the beginning of the morning shift. He is on 4 L of oxygen at rest and used up to 6 L/min of oxygen with ambulation of about 100 feet. Patient is feeling mild shortness of breath. He is also having cough and respiratory wheezings. He denies chest pain or pressure. He denies any fever chills or diaphoresis. He has been afebrile overnight. Blood culture no growth today. Continue oral Lasix, losartan, and Aldactone for CHF exacerbations. Add beta- thu at time of hospital discharge. Continue to wean supplemental oxygen therapy as tolerated by the patient. Continue Rocephin and azithromycin while monitoring for blood culture result for pneumonia. Current plan is to discharge the patient home with home health service tomorrow and likely with home oxygen. 11/06: Patient has reached clinical stability. Decision made to discharge patient home with home health service. Oxygen concentrator sent with him. Prescriptions sent to his pharmacy. Instructions to follow-up with his PCP in 1 weeks given to him. All questions answered prior to patient being physically discharged. Discharge diagnosis: CHF exacerbation, pneumonia Time Spent with Patient Time attestation: Total time spent providing and/or coordinating discharge services: Time spent: Greater than 30 minutes EXAM Constitutional Vitals: Temp Pulse Resp BP Pulse Ox O2 Del Method O2 Flow Rate 37.9 C H 93 H 17 148/80 94 Room Air 4 11/06/22 07:51 11/06/22 07:51 11/06/22 07:51 11/06/22 07:51 11/06/22 07:51 11/06/22 07:51 11/06/22 03:57 General appearance: cooperative and no acute distress Head Head exam: Present atraumatic and normocephalic Eye Eye exam: Present EOMI and PERRL ENT ENT exam: Present mucous membranes moist, normal exam and normal external ear exam Additional comments: Oxymask Neck Neck exam: Present normal inspection; Absent lymphadenopathy, tenderness or thyromegaly Respiratory Respiratory exam: Present rhonchi; Absent accessory muscle use, respiratory distress or wheezes Cardiovascular Cardiovascular exam: Present normal rate and rhythm; Absent JVD GI/Abdominal GI/Abdominal exam: Present normal bowel sounds and soft; Absent organomegaly or tenderness Rectal Rectal exam: Present deferred Extremities Exam Extremities exam: Present full ROM, normal capillary refill, normal inspection and pedal edema; Absent tenderness Neurological Exam Neurological exam: Present alert, CN II-XII intact and oriented X3; Absent motor sensory deficit Psychiatric Psychiatric exam: Present normal affect and normal mood; Absent anxious or depressed Skin Skin exam: Present dry and intact Discharge Data Data Completed and Pending Labs on day of discharge: Labs from last 24 hours 11/06/22 11/06/22 06:16 06:16 WBC 4.0 L RBC 4.09 L Hgb 11.4 L Hct 38.6 L MCV 94.4 MCH 27.9 MCHC 29.5 L RDW 14.4 Plt Count 158 MPV 9.2 Immature Gran % (Auto) 0.3 Neut % (Auto) 70.6 Lymph % (Auto) 11.9 L [place] % (Auto) 14.6 H Eos % (Auto) 1.8 Baso % (Auto) 0.8 Lymph # (Auto) 0.47 L [place] # (Auto) 0.58 Eos # (Auto) 0.07 Baso # (Auto) 0.03 Immature Gran # 0.01 Absolute Neutrophils 2.80 Sodium 132 L Potassium 4.6 Chloride 91 L Carbon Dioxide 39 H Anion Gap 2.0 L BUN 13 Creatinine 0.9 GFR Calculation 83 Glucose 107 H Calcium 10.1 Total Bilirubin 0.5 AST 21 ALT 11 Alkaline Phosphatase 56 Total Protein 6.3 Albumin 3.6 Globulin 2.7 Albumin/Globulin Ratio 1.3 Preliminary micro results at discharge 11/01/22 18:09 Blood Culture - Preliminary Blood 11/01/22 18:05 Blood Culture - Preliminary Blood Discharge Plan Patient/Caregiver Discharge Instructions Prescriptions: New furosemide 40 mg Tablet 40 mg PO BIDD Qty: 60 0RF nicotine 14 mg/24 hr Patch 24 Hour 14 mg topical DAILY@1000 Qty: 30 0RF dextromethorphan-guaifenesin 10-100 mg/5 mL Syrup 10 ml PO Q4HP PRN (Reason: Cough) Qty: 240 0RF spironolactone 25 mg Tablet 25 mg PO DAILY Qty: 30 0RF losartan 25 mg Tablet 25 mg PO DAILY Qty: 30 0RF nicotine [Nicoderm CQ] 21 mg/24 hr Patch 24 Hour 21 mg topical DAILY@1000 Qty: 30 0RF carvedilol [Coreg] 3.125 mg tablet 3.125 mg PO BID Qty: 60 0RF Rx Instructions: must administer with a meal/food Continued (DME) compression socks, medium [Futuro Restoring Medium] Misc See Rx Instructions .Route Qty: 2 5RF Rx Instructions: As directed esomeprazole magnesium [Nexium] 40 mg capsule,delayed release(DR/EC) 40 mg PO QDAY Qty: 90 1RF amlodipine 5 mg tablet 5 mg PO QDAY Qty: 90 1RF albuterol sulfate 90 mcg/actuation HFA aerosol inhaler 2 puff inhalation Q6H PRN (Reason: shortness of breath or wheezing) Qty: 8.5 1RF vitamin E mixed 400 unit tablet 400 unit PO QDAY nortriptyline 10 mg capsule 10 mg PO QHS Qty: 90 3RF quinine-vitamin E Capsule 1 cap PO QDAY Slow Release Iron 160 mg (50 mg iron) tablet extended release 160 mg PO QDAY ginseng 500 mg capsule 500 mg PO QDAY methocarbamol 500 mg tablet 500 mg PO BID oxycodone-acetaminophen 7.5-325 mg tablet 1 tab PO 5XD PRN (Reason: Pain) escitalopram oxalate 10 mg tablet 10 mg PO QDAY Qty: 90 1RF Discontinued doxycycline hyclate 100 mg tablet 100 mg PO BID Qty: 20 0RF prednisone 20 mg tablet 40 mg PO QDAY Qty: 10 0RF azithromycin 250 mg tablet See Rx Instructions PO .COMPLEX Qty: 6 0RF Rx Instructions: For 250 mg dose pack: take 500 mg today (day 1), then 250 mg for 4 days (days 2-5) PO amoxicillin 500 mg capsule 500 mg PO Q12H Qty: 20 0RF Follow Up Plan Follow up with: Cory Tomlin DO [Primary Care Provider] - Patient Disposition: Home Health Service Rehab Potential: Good I certify that the patient requires SNF services: No Overall status at discharge: patient is progressing back to baseline Discharge Orders: Discharge Order (Routine); Ordered 11/06/22 Ordered By: Vinny Bruno
== END 2022-11-06 11:30 | disposition home health service (06) | DRG 291 ==
LOC: ED 10:42 → MEDSUR 17:08
PROVIDERS: ADMIT Internal Medicine; ATTEND Internal Medicine

== ENCOUNTER 2023-06-14 12:50 | Inpatient (IN) ==
[2023-06-14] MEDS ORDERED: IOPAMIDOL 100 ML BOTTLE IV ONE (12:51)
[2023-06-14 13:37] LABS: POC Pro Time 12.5 (11.9-14.5)
[2023-06-14 13:46] LABS: POC Calcium, Ionized 1.11 (1.16-1.32); POC Creatinine 1.3 (0.6-1.2); POC Potassium 4.9 (3.3-5.1)
[2023-06-14 14:06] LABS: Basophils # (Auto) 0.03 K/mcL (0.00-0.30); Basophils % (Auto) 0.6 % (0.0-2.0); Eosinophils # (Auto) 0.07 K/mcL (0.00-0.70); Eosinophils % (Auto) 1.5 % (0.0-7.0); Hematocrit 36.3 % (40.1-51.0); Hemoglobin 11.3 g/dL (13.7-17.5); Lymphocytes # (Auto) 0.46 K/mcL (1.50-4.80); Lymphocytes % (Auto) 9.6 % (15.5-49.0); Mean Cell Volume 96.3 fL (80.0-100.0); Mean Corpuscular HGB Conc 31.1 g/dL (31.0-36.0); Mean Platelet Volume 9.5 fL (8.8-12.5); Monocytes # (Auto) 0.58 K/mcL (0.10-0.90); Monocytes % (Auto) 12.1 % (1.0-12.0); Neutrophils % (Auto) 75.8 % (38.0-78.0); Platelet Count 200 K/mcL (140-440); RBC 3.77 M/mcL (4.63-6.08); Red Cell Distribution Width 13.9 % (11.5-14.5); WBC 4.8 K/mcL (4.5-11.0)
[2023-06-14 14:29] LABS: ALT/SGPT 11 U/L (<40); AST/SGOT 18 U/L (<40); Albumin 3.8 gm/dL (3.2-5.2); Alkaline Phosphatase 77 U/L (39-117); Bilirubin,Direct < 0.2 mg/dL (0-0.3); Bilirubin,Total 0.5 mg/dL (0.1-1.0); Globulin 2.6 gm/dL (2.2-3.7)
[2023-06-14] MEDS ORDERED: NICOTINE 14 MG PATCH TOPICAL ONE (15:08)
[2023-06-14] MEDS ORDERED: 0.9 % SODIUM CHLORIDE 1,000 ML IV ONE (17:37)
[2023-06-14 18:03] LABS: Appearance,Urine CLEAR (Clear); Bilirubin,Urine Negative (Negative); Color,Urine YELLOW; Culture Indicated,Urine No; Glucose,Urine (UA) Negative (Negative); Ketones,Urine Negative (Negative); Leukocyte Esterase,Urine Negative /uL (Negative); Mucus,Urine FEW /hpf; Nitrate,Urine Negative (Negative); Protein,Urine 30 mg/dL (Negative); Specific Gravity,Urine 1.026 (1.000-1.035); Urine Blood Negative (Negative); Urine Hyaline Cast 4 /lph (0-2); Urine RBC 0 /hpf (0-3); Urine Squamous Epithelial Cell 0 /hpf (0-4); Urine WBC < 1 /hpf (0-4); Urobilinogen,Urine Negative
[2023-06-14] MEDS ORDERED: FUROSEMIDE 20 MG/2 ML VIAL IV ONE (19:08)
[2023-06-14] MEDS ORDERED: LACTULOSE 20 GM/30 ML ORAL.SOL PO PRN (20:07)
[2023-06-14] MEDS ORDERED: SENNOSIDES 1 TABLET PO PRN (20:07)
[2023-06-14] MEDS ORDERED: ACETAMINOPHEN 325 MG TABLET PO PRN (20:07)
[2023-06-14 20:48] LABS: Creatinine, Spot Urine 75.9 mg/dL (39.0-259.0); Pro:Crea Ratio 0.49 (<0.20)
[2023-06-14] MEDS: acetaZOLAMIDE SOD 500 MG VIAL IV SCH (21:25)
[2023-06-14] MEDS: HYDROcodone/APAP 5/325MG TABLET PO PRN (21:25)
[2023-06-14] MEDS: 0.9 % SODIUM CHLORIDE 10 ML SYRINGE IV SCH (21:25)
[2023-06-14] MEDS: FUROSEMIDE 100 MG/10 ML VIAL IV SCH (21:25)
[2023-06-14] MEDS: DOCUSATE SODIUM 100 MG CAPSULE PO SCH (21:26)
[2023-06-14] MEDS ORDERED: IPRATROPIUM/ALBUTEROL 3 ML AMPUL.NEB NEB PRN (22:39)
[2023-06-14] MEDS: IPRATROPIUM/ALBUTEROL 3 ML AMPUL.NEB NEB ONE (22:55)
[2023-06-15] MEDS: HYDROcodone/APAP 5/325MG TABLET PO PRN (01:22)
[2023-06-15] MEDS: IPRATROPIUM/ALBUTEROL 3 ML AMPUL.NEB NEB ONE (03:32)
[2023-06-15] MEDS: 0.9 % SODIUM CHLORIDE 10 ML SYRINGE IV SCH ×3 (05:39→20:33)
[2023-06-15 07:28] LABS: Basophils # (Auto) 0.04 K/mcL (0.00-0.30); Basophils % (Auto) 0.9 % (0.0-2.0); Eosinophils # (Auto) 0.13 K/mcL (0.00-0.70); Eosinophils % (Auto) 2.8 % (0.0-7.0); Hematocrit 36.1 % (40.1-51.0); Hemoglobin 10.9 g/dL (13.7-17.5); Lymphocytes % (Auto) 15.1 % (15.5-49.0); Mean Cell Volume 100.3 fL (80.0-100.0); Mean Corpuscular HGB Conc 30.2 g/dL (31.0-36.0); Monocytes # (Auto) 0.69 K/mcL (0.10-0.90); Monocytes % (Auto) 14.9 % (1.0-12.0); Neutrophils % (Auto) 65.9 % (38.0-78.0); Platelet Count 194 K/mcL (140-440); Red Cell Distribution Width 13.9 % (11.5-14.5); WBC 4.6 K/mcL (4.5-11.0)
[2023-06-15] MEDS ORDERED: morphine 15 MG TABLET PO PRN (07:48)
[2023-06-15] MEDS ORDERED: ALBUTEROL SULFATE 60 PUFF INHALER INH PRN (07:48)
[2023-06-15] MEDS ORDERED: SIMETHICONE 80 MG TAB.CHEW CHEWED PRN (07:54)
[2023-06-15 08:00] LABS: Albumin 3.6 gm/dL (3.2-5.2); Blood Urea Nitrogen 18 mg/dL (8-23); Calcium 9.8 mg/dL (8.6-10.4); Carbon Dioxide 29 mmol/L (22-30); Chloride 94 mmol/L (96-108); Glomerular Filtration Rate 48; Glucose 98 mg/dL (70-105); Phosphorous 4.6 mg/dL (2.5-4.5)
[2023-06-15] MEDS ORDERED: ESCITALOPRAM 10 MG TABLET PO SCH (09:00)
[2023-06-15] MEDS: DOCUSATE SODIUM 100 MG CAPSULE PO SCH ×2 (09:56→20:33)
[2023-06-15] MEDS: PANTOPRAZOLE 40 MG TABLET PO SCH ×2 (10:41→17:09)
[2023-06-15] MEDS: BUMETANIDE 1 MG/4 ML VIAL IV SCH ×2 (10:41→20:32)
[2023-06-15] MEDS: acetaZOLAMIDE SOD 500 MG VIAL IV SCH (10:42)
[2023-06-15] MEDS: ENOXAPARIN 40 MG/0.4 ML SYRINGE SQ SCH (10:42)
[2023-06-15] MEDS: GLYCOPYRROLATE INH SCH ×2 (10:48→22:02)
[2023-06-15] MEDS: FORMOTEROL INH SCH ×2 (10:48→22:02)
[2023-06-15] MEDS: BUDESONIDE INH SCH ×2 (10:48→22:02)
[2023-06-15] MEDS: FUROSEMIDE 100 MG/10 ML VIAL IV SCH (12:54)
[2023-06-15] MEDS ORDERED: IPRATROPIUM/ALBUTEROL 3 ML AMPUL.NEB NEB SCH (13:00)
[2023-06-15] MEDS: ALBUTEROL SULFATE 60 PUFF INHALER INH PRN (22:04)
[2023-06-16] MEDS: 0.9 % SODIUM CHLORIDE 10 ML SYRINGE IV SCH ×3 (04:00→20:09)
[2023-06-16 06:56] LABS: Blood Urea Nitrogen 25 mg/dL (8-23); Calcium 10.2 mg/dL (8.6-10.4); Carbon Dioxide 29 mmol/L (22-30); Chloride 94 mmol/L (96-108); Glomerular Filtration Rate 44; Glucose 89 mg/dL (70-105); Phosphorous 3.8 mg/dL (2.5-4.5)
[2023-06-16] MEDS: DOCUSATE SODIUM 100 MG CAPSULE PO SCH ×2 (08:06→20:09)
[2023-06-16] MEDS: PANTOPRAZOLE 40 MG TABLET PO SCH ×2 (08:33→17:32)
[2023-06-16] MEDS: GLYCOPYRROLATE INH SCH ×3 (08:34→20:09)
[2023-06-16] MEDS: FORMOTEROL INH SCH ×3 (08:34→20:09)
[2023-06-16] MEDS: ALBUTEROL SULFATE 60 PUFF INHALER INH PRN (08:34)
[2023-06-16] MEDS: acetaZOLAMIDE SOD 500 MG VIAL IV SCH (08:34)
[2023-06-16] MEDS: ENOXAPARIN 40 MG/0.4 ML SYRINGE SQ SCH (08:34)
[2023-06-16] MEDS: BUDESONIDE INH SCH ×3 (08:34→20:09)
[2023-06-16] MEDS ORDERED: BUMETANIDE 1 MG/4 ML VIAL IV SCH ×2 (09:00)
[2023-06-16 09:51] LABS: ABG Methemoglobin 0.4 % (0.4-1.5); Total Hemoglobin 12.3 gm/Dl (13.5-16.5); VBG Base Excess 0 (-2-3); VBG HCO3 28.9 mmol/L (24.0-28.0); VBG Oxygen Saturation 88.3 % (40.0-70.0); VBG PCO2 67.8 mmHg (41.0-51.0); VBG PH 7.25 U (7.32-7.42); VBG PO2 77.7 mmHg (25.0-40.0)
[2023-06-16] MEDS ORDERED: morphine 15 MG TABLET PO PRN (12:37)
[2023-06-16] MEDS: BUMETANIDE 1 MG/4 ML VIAL IV SCH ×2 (15:41→20:09)
[2023-06-16 17:40] LABS: ABG Methemoglobin 0.2 % (0.4-1.5); Total Hemoglobin 13.4 gm/Dl (13.5-16.5); VBG Base Excess 1 (-2-3); VBG HCO3 29.9 mmol/L (24.0-28.0); VBG Oxygen Saturation 70.6 % (40.0-70.0); VBG PCO2 69.7 mmHg (41.0-51.0); VBG PH 7.25 U (7.32-7.42); VBG PO2 42.5 mmHg (25.0-40.0); VBG Total CO2 32.1 mmol/L (25.0-29.0)
[2023-06-16] MEDS ORDERED: LORazepam 2 MG/ML VIAL IV PRN (21:35)
[2023-06-16] MEDS ORDERED: morphine 2 MG/ML VIAL IV PRN (21:36)
[2023-06-16] MEDS ORDERED: LACTULOSE 20 GM/30 ML ORAL.SOL PO PRN (21:58)
[2023-06-16] MEDS ORDERED: SENNOSIDES 1 TABLET PO PRN (22:11)
[2023-06-16] MEDS ORDERED: HYDROcodone/APAP 5/325MG TABLET PO PRN (22:22)
[2023-06-17] MEDS: 0.9 % SODIUM CHLORIDE 10 ML SYRINGE IV SCH ×3 (05:13→20:00)
[2023-06-17 08:01] LABS: Basophils # (Auto) 0.03 K/mcL (0.00-0.30); Basophils % (Auto) 0.8 % (0.0-2.0); Eosinophils # (Auto) 0.07 K/mcL (0.00-0.70); Eosinophils % (Auto) 1.8 % (0.0-7.0); Hematocrit 39.9 % (40.1-51.0); Hemoglobin 11.3 g/dL (13.7-17.5); Lymphocytes # (Auto) 0.58 K/mcL (1.50-4.80); Lymphocytes % (Auto) 15.2 % (15.5-49.0); Mean Cell Volume 106.1 fL (80.0-100.0); Mean Corpuscular HGB Conc 28.3 g/dL (31.0-36.0); Mean Platelet Volume 10.2 fL (8.8-12.5); Monocytes # (Auto) 0.64 K/mcL (0.10-0.90); Monocytes % (Auto) 16.8 % (1.0-12.0); Neutrophils % (Auto) 65.1 % (38.0-78.0); Platelet Count 205 K/mcL (140-440); RBC 3.76 M/mcL (4.63-6.08); Red Cell Distribution Width 14.2 % (11.5-14.5); WBC 3.8 K/mcL (4.5-11.0)
[2023-06-17 08:07] LABS: Albumin 3.8 gm/dL (3.2-5.2); Blood Urea Nitrogen 30 mg/dL (8-23); Calcium 10.2 mg/dL (8.6-10.4); Carbon Dioxide 25 mmol/L (22-30); Chloride 93 mmol/L (96-108); Glomerular Filtration Rate 41; Glucose 89 mg/dL (70-105); Phosphorous 3.4 mg/dL (2.5-4.5)
[2023-06-17] MEDS: PANTOPRAZOLE 40 MG TABLET PO SCH ×2 (08:24→16:48)
[2023-06-17] MEDS: ESCITALOPRAM 10 MG TABLET PO SCH (08:24)
[2023-06-17] MEDS: BUMETANIDE 1 MG/4 ML VIAL IV SCH ×3 (08:24→20:01)
[2023-06-17] MEDS: ENOXAPARIN 40 MG/0.4 ML SYRINGE SQ SCH (08:24)
[2023-06-17] MEDS: acetaZOLAMIDE SOD 500 MG VIAL IV SCH (08:24)
[2023-06-17] MEDS: DOCUSATE SODIUM 100 MG CAPSULE PO SCH ×2 (08:25→19:44)
[2023-06-17] MEDS ORDERED: SIMETHICONE 80 MG TAB.CHEW CHEWED SCH (08:30)
[2023-06-17] MEDS ORDERED: METOPROLOL SUCCINATE 25 MG TAB.XL.24H PO SCH (09:00)
[2023-06-17] MEDS: NICOTINE 14 MG PATCH TOPICAL SCH (10:06)
[2023-06-17] MEDS: [UNRECOGNIZED DRUG - OTHER] INH SCH ×2 (10:10→20:00)
[2023-06-17 16:50] LABS: Blood Urea Nitrogen 30 mg/dL (8-23); Calcium 10.6 mg/dL (8.6-10.4); Carbon Dioxide 29 mmol/L (22-30); Chloride 94 mmol/L (96-108); Glomerular Filtration Rate 48; Glucose 107 mg/dL (70-105)
[2023-06-17] MEDS: ALBUTEROL SULFATE 60 PUFF INHALER INH PRN (20:10)
[2023-06-17] MEDS: ONDANSETRON 4 MG/2 ML VIAL IV PRN (21:11)
[2023-06-18] MEDS: 0.9 % SODIUM CHLORIDE 10 ML SYRINGE IV SCH ×3 (05:05→20:36)
[2023-06-18] MEDS: PANTOPRAZOLE 40 MG TABLET PO SCH ×2 (07:24→17:08)
[2023-06-18 07:25] LABS: Blood Urea Nitrogen 29 mg/dL (8-23); Calcium 10.6 mg/dL (8.6-10.4); Carbon Dioxide 28 mmol/L (22-30); Chloride 92 mmol/L (96-108); Glomerular Filtration Rate 44; Glucose 95 mg/dL (70-105); Phosphorous 3.3 mg/dL (2.5-4.5)
[2023-06-18] MEDS: DOCUSATE SODIUM 100 MG CAPSULE PO SCH ×3 (08:07→20:08)
[2023-06-18] MEDS: ENOXAPARIN 40 MG/0.4 ML SYRINGE SQ SCH (08:20)
[2023-06-18] MEDS: acetaZOLAMIDE SOD 500 MG VIAL IV SCH (08:20)
[2023-06-18] MEDS: ESCITALOPRAM 10 MG TABLET PO SCH (08:25)
[2023-06-18] MEDS: [UNRECOGNIZED DRUG - OTHER] INH SCH ×2 (08:25→20:08)
[2023-06-18] MEDS: BUMETANIDE 1 MG/4 ML VIAL IV SCH ×3 (08:30→20:36)
[2023-06-18] MEDS ORDERED: METOPROLOL SUCCINATE 25 MG TAB.XL.24H PO SCH (09:00)
[2023-06-18] MEDS: NICOTINE 14 MG PATCH TOPICAL SCH (10:36)
[2023-06-18 16:57] LABS: Blood Urea Nitrogen 32 mg/dL (8-23); Carbon Dioxide 30 mmol/L (22-30); Chloride 93 mmol/L (96-108); Glomerular Filtration Rate 38; Glucose 112 mg/dL (70-105)
[2023-06-19] MEDS: 0.9 % SODIUM CHLORIDE 10 ML SYRINGE IV SCH ×3 (04:07→20:51)
[2023-06-19] MEDS: ONDANSETRON 4 MG/2 ML VIAL IV PRN (04:07)
[2023-06-19 06:54] LABS: Basophils # (Auto) 0.03 K/mcL (0.00-0.30); Basophils % (Auto) 0.9 % (0.0-2.0); Eosinophils # (Auto) 0.08 K/mcL (0.00-0.70); Eosinophils % (Auto) 2.4 % (0.0-7.0); Hematocrit 36.4 % (40.1-51.0); Hemoglobin 11.1 g/dL (13.7-17.5); Lymphocytes # (Auto) 0.72 K/mcL (1.50-4.80); Lymphocytes % (Auto) 21.4 % (15.5-49.0); Mean Cell Volume 97.6 fL (80.0-100.0); Mean Corpuscular HGB Conc 30.5 g/dL (31.0-36.0); Mean Platelet Volume 9.6 fL (8.8-12.5); Monocytes % (Auto) 23.7 % (1.0-12.0); Platelet Count 193 K/mcL (140-440); RBC 3.73 M/mcL (4.63-6.08); Red Cell Distribution Width 13.7 % (11.5-14.5); WBC 3.4 K/mcL (4.5-11.0)
[2023-06-19 07:03] LABS: ALT/SGPT 13 U/L (<40); AST/SGOT 16 U/L (<40); Albumin 3.6 gm/dL (3.2-5.2); Albumin/Globulin Ratio 1.2 (1.0-2.3); Alkaline Phosphatase 68 U/L (39-117); Bilirubin,Direct < 0.2 mg/dL (0-0.3); Bilirubin,Total 0.5 mg/dL (0.1-1.0); Blood Urea Nitrogen 34 mg/dL (8-23); Carbon Dioxide 31 mmol/L (22-30); Chloride 95 mmol/L (96-108); Globulin 2.9 gm/dL (2.2-3.7); Glomerular Filtration Rate 33; Glucose 120 mg/dL (70-105); Lactate Dehydrogenase 167 U/L (135-225); Phosphorous 3.2 mg/dL (2.5-4.5); Triglycerides 99 mg/dL (<150); Uric Acid 13.5 mg/dL (2.5-8.0)
[2023-06-19] MEDS: DOCUSATE SODIUM 100 MG CAPSULE PO SCH ×2 (08:25→20:49)
[2023-06-19] MEDS: ESCITALOPRAM 10 MG TABLET PO SCH (08:29)
[2023-06-19] MEDS: METOPROLOL SUCCINATE 25 MG TAB.XL.24H PO SCH (08:29)
[2023-06-19] MEDS: ENOXAPARIN 40 MG/0.4 ML SYRINGE SQ SCH (08:29)
[2023-06-19] MEDS: [UNRECOGNIZED DRUG - OTHER] INH SCH ×2 (08:30→20:49)
[2023-06-19] MEDS: BUMETANIDE 1 MG TABLET PO SCH ×2 (08:33→16:09)
[2023-06-19] MEDS: PANTOPRAZOLE 40 MG TABLET PO SCH ×2 (08:33→16:09)
[2023-06-19] MEDS: NICOTINE 14 MG PATCH TOPICAL SCH (08:34)
[2023-06-19] MEDS: SIMETHICONE 80 MG TAB.CHEW CHEWED PRN (14:20)
[2023-06-20] MEDS: 0.9 % SODIUM CHLORIDE 10 ML SYRINGE IV SCH ×3 (06:40→21:20)
[2023-06-20 07:00] LABS: Basophils # (Auto) 0.04 K/mcL (0.00-0.30); Basophils % (Auto) 1.6 % (0.0-2.0); Eosinophils # (Auto) 0.11 K/mcL (0.00-0.70); Eosinophils % (Auto) 4.3 % (0.0-7.0); Hematocrit 37.1 % (40.1-51.0); Hemoglobin 11.3 g/dL (13.7-17.5); Lymphocytes # (Auto) 0.75 K/mcL (1.50-4.80); Lymphocytes % (Auto) 29.6 % (15.5-49.0); Mean Cell Volume 97.9 fL (80.0-100.0); Mean Corpuscular HGB Conc 30.5 g/dL (31.0-36.0); Mean Platelet Volume 9.8 fL (8.8-12.5); Monocytes # (Auto) 0.61 K/mcL (0.10-0.90); Monocytes % (Auto) 24.1 % (1.0-12.0); Platelet Count 188 K/mcL (140-440); RBC 3.79 M/mcL (4.63-6.08); Red Cell Distribution Width 13.9 % (11.5-14.5); WBC 2.5 K/mcL (4.5-11.0)
[2023-06-20] MEDS: PANTOPRAZOLE 40 MG TABLET PO SCH ×2 (07:05→17:20)
[2023-06-20] MEDS: BUMETANIDE 1 MG TABLET PO SCH ×2 (07:05→15:15)
[2023-06-20 07:20] LABS: ALT/SGPT 13 U/L (<40); AST/SGOT 15 U/L (<40); Albumin 3.7 gm/dL (3.2-5.2); Albumin/Globulin Ratio 1.3 (1.0-2.3); Alkaline Phosphatase 63 U/L (39-117); Bilirubin,Direct < 0.2 mg/dL (0-0.3); Bilirubin,Total 0.5 mg/dL (0.1-1.0); Blood Urea Nitrogen 31 mg/dL (8-23); Carbon Dioxide 32 mmol/L (22-30); Chloride 96 mmol/L (96-108); Globulin 2.8 gm/dL (2.2-3.7); Glomerular Filtration Rate 38; Glucose 100 mg/dL (70-105); Lactate Dehydrogenase 181 U/L (135-225); Phosphorous 3.7 mg/dL (2.5-4.5); Triglycerides 109 mg/dL (<150); Uric Acid 14.1 mg/dL (2.5-8.0)
[2023-06-20] MEDS: ESCITALOPRAM 10 MG TABLET PO SCH (08:25)
[2023-06-20] MEDS: SIMETHICONE 80 MG TAB.CHEW CHEWED PRN (08:25)
[2023-06-20] MEDS: METOPROLOL SUCCINATE 25 MG TAB.XL.24H PO SCH (08:25)
[2023-06-20] MEDS: DOCUSATE SODIUM 100 MG CAPSULE PO SCH ×2 (08:25→21:20)
[2023-06-20] MEDS: ENOXAPARIN 40 MG/0.4 ML SYRINGE SQ SCH (08:25)
[2023-06-20] MEDS: [UNRECOGNIZED DRUG - OTHER] INH SCH ×3 (08:26→21:24)
[2023-06-20] MEDS: NICOTINE 14 MG PATCH TOPICAL SCH (09:10)
[2023-06-20] MEDS: LOSARTAN 25 MG TABLET PO SCH (10:25)
[2023-06-20] MEDS: ALBUTEROL SULFATE 60 PUFF INHALER INH PRN (21:25)
[2023-06-20] MEDS: MELATONIN 3 MG TABLET PO SCH (22:00)
[2023-06-20] MEDS: HYDROcodone/APAP 5/325MG TABLET PO PRN (22:01)
[2023-06-21] MEDS: 0.9 % SODIUM CHLORIDE 10 ML SYRINGE IV SCH ×3 (05:48→20:28)
[2023-06-21 06:43] LABS: Basophils # (Auto) 0.04 K/mcL (0.00-0.30); Basophils % (Auto) 1.5 % (0.0-2.0); Eosinophils # (Auto) 0.11 K/mcL (0.00-0.70); Eosinophils % (Auto) 4.1 % (0.0-7.0); Hematocrit 37.1 % (40.1-51.0); Hemoglobin 11.2 g/dL (13.7-17.5); Lymphocytes # (Auto) 0.84 K/mcL (1.50-4.80); Lymphocytes % (Auto) 31.1 % (15.5-49.0); Mean Cell Volume 96.9 fL (80.0-100.0); Mean Corpuscular HGB Conc 30.2 g/dL (31.0-36.0); Mean Platelet Volume 10.4 fL (8.8-12.5); Monocytes # (Auto) 0.47 K/mcL (0.10-0.90); Monocytes % (Auto) 17.4 % (1.0-12.0); Neutrophils % (Auto) 45.5 % (38.0-78.0); Platelet Count 180 K/mcL (140-440); RBC 3.83 M/mcL (4.63-6.08); Red Cell Distribution Width 13.9 % (11.5-14.5); WBC 2.7 K/mcL (4.5-11.0)
[2023-06-21 07:13] LABS: ALT/SGPT 12 U/L (<40); AST/SGOT 14 U/L (<40); Albumin 3.9 gm/dL (3.2-5.2); Albumin/Globulin Ratio 1.4 (1.0-2.3); Alkaline Phosphatase 62 U/L (39-117); Bilirubin,Total 0.5 mg/dL (0.1-1.0); Blood Urea Nitrogen 34 mg/dL (8-23); Calcium 10.2 mg/dL (8.6-10.4); Carbon Dioxide 30 mmol/L (22-30); Chloride 96 mmol/L (96-108); Globulin 2.8 gm/dL (2.2-3.7); Glomerular Filtration Rate 36; Glucose 122 mg/dL (70-105)
[2023-06-21] MEDS: PANTOPRAZOLE 40 MG TABLET PO SCH ×2 (07:19→16:14)
[2023-06-21] MEDS: BUMETANIDE 1 MG TABLET PO SCH ×2 (07:19→16:14)
[2023-06-21] MEDS: ENOXAPARIN 40 MG/0.4 ML SYRINGE SQ SCH (09:04)
[2023-06-21] MEDS: MAGNESIUM OXIDE 400 MG TABLET PO SCH (09:05)
[2023-06-21] MEDS: LOSARTAN 25 MG TABLET PO SCH (09:05)
[2023-06-21] MEDS: ESCITALOPRAM 10 MG TABLET PO SCH (09:05)
[2023-06-21] MEDS: METOPROLOL SUCCINATE 25 MG TAB.XL.24H PO SCH (09:06)
[2023-06-21] MEDS: SPIRONOLACTONE 25 MG TABLET PO SCH (09:07)
[2023-06-21] MEDS: DOCUSATE SODIUM 100 MG CAPSULE PO SCH ×2 (09:07→20:28)
[2023-06-21] MEDS: [UNRECOGNIZED DRUG - OTHER] INH SCH ×3 (09:07→20:44)
[2023-06-21] MEDS: NICOTINE 14 MG PATCH TOPICAL SCH (10:36)
[2023-06-21] MEDS: SIMETHICONE 80 MG TAB.CHEW CHEWED PRN (20:27)
[2023-06-21] MEDS: MELATONIN 3 MG TABLET PO SCH (20:27)
[2023-06-21] MEDS: ALBUTEROL SULFATE 60 PUFF INHALER INH PRN (20:44)
[2023-06-21] MEDS: HYDROcodone/APAP 5/325MG TABLET PO PRN (23:21)
[2023-06-22] MEDS: 0.9 % SODIUM CHLORIDE 10 ML SYRINGE IV SCH (05:41)
[2023-06-22 07:06] LABS: Basophils # (Auto) 0.03 K/mcL (0.00-0.30); Basophils % (Auto) 0.9 % (0.0-2.0); Eosinophils # (Auto) 0.12 K/mcL (0.00-0.70); Eosinophils % (Auto) 3.6 % (0.0-7.0); Hematocrit 35.7 % (40.1-51.0); Hemoglobin 11.1 g/dL (13.7-17.5); Lymphocytes # (Auto) 0.91 K/mcL (1.50-4.80); Lymphocytes % (Auto) 27.1 % (15.5-49.0); Mean Cell Volume 95.7 fL (80.0-100.0); Mean Corpuscular HGB Conc 31.1 g/dL (31.0-36.0); Mean Platelet Volume 10.2 fL (8.8-12.5); Monocytes # (Auto) 0.58 K/mcL (0.10-0.90); Monocytes % (Auto) 17.3 % (1.0-12.0); Neutrophils % (Auto) 50.5 % (38.0-78.0); Platelet Count 182 K/mcL (140-440); RBC 3.73 M/mcL (4.63-6.08); Red Cell Distribution Width 13.9 % (11.5-14.5); WBC 3.4 K/mcL (4.5-11.0)
[2023-06-22] MEDS: BUMETANIDE 1 MG TABLET PO SCH (07:33)
[2023-06-22] MEDS: PANTOPRAZOLE 40 MG TABLET PO SCH (07:36)
[2023-06-22 07:50] LABS: ALT/SGPT 13 U/L (<40); AST/SGOT 16 U/L (<40); Albumin/Globulin Ratio 1.5 (1.0-2.3); Alkaline Phosphatase 63 U/L (39-117); Bilirubin,Total 0.4 mg/dL (0.1-1.0); Blood Urea Nitrogen 32 mg/dL (8-23); Calcium 10.3 mg/dL (8.6-10.4); Carbon Dioxide 32 mmol/L (22-30); Chloride 96 mmol/L (96-108); Globulin 2.7 gm/dL (2.2-3.7); Glomerular Filtration Rate 38; Glucose 111 mg/dL (70-105)
[2023-06-22] MEDS: LOSARTAN 25 MG TABLET PO SCH (09:13)
[2023-06-22] MEDS: ENOXAPARIN 40 MG/0.4 ML SYRINGE SQ SCH (09:13)
[2023-06-22] MEDS: MAGNESIUM OXIDE 400 MG TABLET PO SCH (09:14)
[2023-06-22] MEDS: SPIRONOLACTONE 25 MG TABLET PO SCH (09:14)
[2023-06-22] MEDS: METOPROLOL SUCCINATE 25 MG TAB.XL.24H PO SCH (09:14)
[2023-06-22] MEDS: ESCITALOPRAM 10 MG TABLET PO SCH (09:14)
[2023-06-22] MEDS: DOCUSATE SODIUM 100 MG CAPSULE PO SCH (09:14)
[2023-06-22] MEDS: ALBUTEROL SULFATE 60 PUFF INHALER INH PRN (10:08)
[2023-06-22] MEDS: NICOTINE 14 MG PATCH TOPICAL SCH (10:08)
[2023-06-22] MEDS: [UNRECOGNIZED DRUG - OTHER] INH SCH (10:40)
== END 2023-06-22 11:15 | DRG 291 ==
LOC: ED 12:50 → ICU 19:57 → MEDSUR 06-19 13:20
PROVIDERS: ADMIT Internal Medicine; ATTEND Internal Medicine